=== PATIENT | female | born 1935 | race Caucasian/White ===

== ENCOUNTER 2017-09-17 08:40 | Inpatient (IN) ==
--- NOTE | 2017-09-17 09:04 | Emergency Department Note ---
General Adult HPI - General Chief complaint: Weakness Stated complaint: Weakness Time Seen by Provider: 09/17/17 08:58 Source: patient Mode of arrival: wheelchair Limitations: no limitations - History of Present Illness HPI Narrative: This patient was seen here on Friday and diagnosed with a right upper lobe pneumonia and started on Zithromax. She seems to be worsening at home over the last few days with increasing shortness of breath and weakness. No nausea vomiting no fever chills. - Related Data Previous Rx's Medication Instructions Recorded Centrum Silver Women 8 mg iron-400 1 tab PO QDAY 30 Days #30 tab NS 06/01/15 mcg-300 mcg tablet cholecalciferol (vitamin D3) 1,000 1,000 unit PO QDAY 30 Days #30 cap 06/01/15 unit capsule calcium carbonate 500 mg calcium 500 mg PO BID 30 Days #60 tab 12/03/16 (1,250 mg) tablet benazepril 20 mg tablet 20 mg PO QDAY 90 Days #90 tab 12/04/16 denosumab 60 mg/mL subcutaneous 60 mg SUB-Q [id number] #1 ml 12/20/16 syringe celecoxib 200 mg capsule 200 mg PO QDAY PRN #90 cap 04/10/17 Azithromycin [Zithromax] 250 mg PO DAILY #6 tab 09/14/17 Allergies Allergy/AdvReac Type Severity Reaction Status Date / Time Sulfa (Sulfonamide AdvReac Intermediate Itching Verified 09/17/17 08:43 Antibiotics) Review of Systems Constitutional: Denies: fever, chills Eyes: Denies: eye pain ENT ED: Denies: ear pain Cardiovascular: Denies: chest pain Respiratory: Reports: shortness of breath, cough Gastrointestinal: Denies: abdominal pain, nausea Genitourinary: Denies: dysuria Musculoskeletal: Denies: back pain Integumentary: Denies: rash Past Medical History - Past Medical History [facility] Narrative: Medical History Pneumonia (Acute) Breast cancer (Chronic) Colon cancer (Chronic) Hypertension, essential (Chronic) 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) Disorder of connective tissue (Suspected) Connective tissue disease overlap syndrome (Chronic) Leukopenia (Chronic) Stomach tumor (benign) (Chronic) Sicca syndrome, Sjogren's (Chronic) Schatzki's ring (Chronic) History of parotid cancer (Chronic) Pancytopenia (Chronic) Hypertonicity of bladder (Chronic) Osteoporosis (Chronic) Osteoarthritis (Chronic) Hyponatremia (Chronic) Anemia (Chronic) Arthritis (Inactive) Autoimmune disease (Inactive) Bleeding tendency (Inactive) Heart murmur (Inactive) History of modified radical mastectomy of left breast (Inactive) Rheumatic disease (Inactive) Screening for thyroid disorder (Inactive) Past Surgical History H/O mastectomy (Acute) H/O: hysterectomy (Acute) History of colon surgery (Acute) History of intestinal surgery (Inactive) Hx of biopsy (Inactive) Hx of colonoscopy (Inactive) Hx of hysterectomy (Inactive) Hx of right mastectomy (Inactive) Family History none listed Dementia mother Arthritis Essential hypertension - Social History smoking status: Never smoker Physical Exam Limitations: no limitations General appearance: alert, in no apparent distress Head: atraumatic Eye: Present: normal appearance ENT: normal exam Neck: Present: normal inspection Chest: Present: normal inspection Respiratory: Present: other (Scattered rhonchi). Absent: respiratory distress Cardiovascular: Present: regular rate, normal rhythm, normal heart sounds Abdominal: Present: soft. Absent: distention, tenderness Neurological: Present: alert Psychiatric: Present: normal affect, normal mood Skin: Present: warm, dry, intact Course Vital Signs Temperature 99.4 F H 09/17/17 08:41 Pulse Rate 80 09/17/17 08:41 Respiratory Rate 14 09/17/17 08:41 Blood Pressure 153/101 09/17/17 08:41 Pulse Oximetry (%) 97 09/17/17 08:41 Temperature 99.4 F H 09/17/17 08:41 Pulse Rate 73 09/17/17 10:01 Respiratory Rate 14 09/17/17 10:01 Blood Pressure 158/82 09/17/17 10:01 Pulse Oximetry (%) 98 09/17/17 10:01 Medical Decision Making - [facility] Narrative Medical decision making narrative: Patient's right upper lobe pneumonia is worsening and her sodium is 113. She will be admitted to the telemetry floor by the hospitalist. - Lab Data Lab results reviewed: Yes I reviewed the patient's lab results. Result diagrams: 09/17/17 09:12 09/17/17 09:11 Lab Results 09/17/17 09/17/17 09/17/17 Range/Units 09:11 09:11 09:12 WBC 13.3 H (4.5-11.0) K/mcL RBC 3.49 L (4.00-5.20) M/mcL Hgb 10.5 L (12.0-15.0) g/dL Hct 30.8 L (36.0-48.0) % MCV 88.3 (80.0-100.0) fL MCH 30.1 (26.0-34.0) pg MCHC 34.0 (31.0-36.0) g/dL RDW 13.9 (11.5-14.5) % Plt Count 235 (140-440) K/mcL MPV 8.9 (7.4-10.4) fL Gran % 91.9 H (38.0-78.0) % Lymph % (Auto) 2.8 L (15.5-49.0) % Deuel % (Auto) 5.2 (1.0-12.0) % Eos % (Auto) 0.1 (0.0-7.0) % Baso % (Auto) 0 (0.0-2.0) % Gran # 12.2 H (1.8-8.0) K/mcL Lymph # (Auto) 0.4 L (1.5-4.8) K/mcL Deuel # (Auto) 0.7 (0.1-0.9) K/mcL Eos # (Auto) 0 (0.0-0.7) K/mcL Baso # (Auto) 0 (0.0-0.3) K/mcL VBG Lactic Acid 1.0 (0.5-2.2) mmol/L Sodium 113 L* (133-145) mmol/L Potassium 4.0 (3.3-5.1) mmol/L Chloride 77 L (96-108) mmol/L Carbon Dioxide 21 L (22-30) mmol/L Anion Gap 15.0 (8-16) BUN 10 (8-23) mg/dl Creatinine 0.6 (0.6-1.1) mg/dl GFR Calculation 84 Glucose 103 (70-105) mg/dL Calcium 7.6 L (8.6-10.4) mg/dl Total Bilirubin 0.8 (0.0-1.0) mg/dL AST 27 (0-37) U/l ALT 14 (0-40) U/l Alkaline Phosphatase 49 (39-117) U/L Total Protein 7.0 (5.9-8.4) gm/dL Albumin 3.5 (3.2-5.2) gm/dL Globulin 3.5 (2.2-3.7) gm/dL Albumin/Globulin Ratio 1.0 (1.0-2.3) - Radiology Data Radiology results reviewed: Yes I reviewed the patient's radiology results. Disposition Pt seen by CABLE MECHANIC/PA only: No Clinical Impression: Pneumonia, Hyponatremia Disposition: Xfer As Inpt ([facility]) Condition: Fair Referrals: Emery Tai MD [Primary Care Provider] - Time of Disposition: 10:19
[2017-09-17] MEDS ORDERED: LACTATED RINGERS 1,000 ML IV SCH ×5 (09:15→20:10)
--- NOTE | 2017-09-17 09:31 | XRay Report ---
CLINICAL INFORMATION: Worsening pneumonia COMPARISON: 09/14/2017 FINDINGS: Cardiomediastinal silhouette is accentuated by right rotation and within normal limits. Pulmonary vessels are unremarkable. Moderate right upper lobe infiltrate has worsened from the x-ray three days ago. Small right pleural effusion noted. Mild old compression fractures throughout the upper mid thoracic spine are stable IMPRESSION: Moderate right upper lobe pneumonia worsening from exam three days ago small right pleural effusion Interpreted and Authenticated by: Kojo Paul 09/17/17
[2017-09-17 09:39] LABS: Basophils # (Auto) 0 K/mcL (0.0-0.3); Basophils % (Auto) 0 % (0.0-2.0); Eosinophils # (Auto) 0 K/mcL (0.0-0.7); Eosinophils % (Auto) 0.1 % (0.0-7.0); Granulocytes % (Auto) 91.9 % (38.0-78.0); Lymphocytes # (Auto) 0.4 K/mcL (1.5-4.8); Lymphocytes % (Auto) 2.8 % (15.5-49.0); Mean Cell Volume 88.3 fL (80.0-100.0); Mean Corpuscular Hemoglobin 30.1 pg (26.0-34.0); Monocytes # (Auto) 0.7 K/mcL (0.1-0.9); Monocytes % (Auto) 5.2 % (1.0-12.0); Platelet Count 235 K/mcL (140-440); RBC 3.49 M/mcL (4.00-5.20); Red Cell Distribution Width 13.9 % (11.5-14.5)
[2017-09-17 10:13] LABS: ALT/SGPT 14 U/l (0-40); Albumin 3.5 gm/dL (3.2-5.2); Alkaline Phosphatase 49 U/L (39-117); Blood Urea Nitrogen 10 mg/dl (8-23)
[2017-09-17] MEDS ORDERED: LEVOFLOXACIN 750 MG/150 ML BAG IV ONE (10:21)
[2017-09-17] MEDS ORDERED: HYDROcodone/APAP 5/325MG TABLET PO PRN (11:57)
[2017-09-17] MEDS ORDERED: ACETAMINOPHEN 325 MG TABLET PO PRN (11:57)
[2017-09-17] MEDS ORDERED: NALOXONE HCL 0.4 MG/ML VIAL IV PRN (11:57)
[2017-09-17] MEDS ORDERED: ONDANSETRON 4 MG/2 ML VIAL IV PRN (11:57)
[2017-09-17] MEDS ORDERED: IPRATROPIUM/ALBUTEROL 3 ML AMPUL.NEB NEB PRN (11:57)
[2017-09-17 13:19] LABS: Appearance,Urine CLEAR; Bilirubin,Urine NEG (NEG); Color,Urine YELLOW; Glucose,Urine (UA) NEGATIVE (NEG); Leukocyte Esterase,Urine NEG /uL (NEG); Protein,Urine NEG (NEG); Specific Gravity,Urine 1.011 (1.000-1.035); Urine Blood NEG mg/dL (<0.03)
[2017-09-17 13:20] LABS: Blood Urea Nitrogen 9 mg/dl (8-23); Uric Acid 2.2 mg/dL (2.5-8.0)
[2017-09-17 13:21] LABS: Osmolality,Urine 327 mOsm/kg (80-1000)
--- NOTE | 2017-09-17 13:24 | Internal Med History&Physical ---
Medical - H&P: HPI Patient information: Note initiated : 09/17/17 at 1:17 pm Service Date, if different from initiated Date: [] Patient: Janene Koroma 82 y/o F admitted on 09/17/17 for Weakness. Chief Complaint: [] History of present illness: Ms. Koroma is a 82 year old Female presents to the ER today with complaints of not feeling well since Friday, the patient woke up with symptoms of cough, not feeling well, shortness of breath on exertion. The cough was dry, non sputum production, the patient was weak therefore presented to the ER a few days ago, the patient was started on po azithromycin. The patient notes that she was taking her medication but still did not feel well and her weakness progressed. She denies any obvious fever or chills, but is bed bound is has lost her appetite, the patient despite taking medications x 3 days did not feel good therefore came back to the Er. In the ER she has leucocytosis,of 13K, low grade temp, Chest x ray showing right upper lobe pna, worsened from 3 days, and new hyponatremia of 113. The patient was therefore admitted to the hospital for further management. Patient is full code, at bedside. 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) Disorder of connective tissue (Suspected) Connective tissue disease overlap syndrome (Chronic) Leukopenia (Chronic) Stomach tumor (benign) (Chronic) Sicca syndrome, Sjogren's (Chronic) Schatzki's ring (Chronic) History of parotid cancer (Chronic) Pancytopenia (Chronic) Hypertonicity of bladder (Chronic) Osteoporosis (Chronic) Osteoarthritis (Chronic) Hyponatremia (Chronic) Anemia (Chronic) Arthritis (Inactive) Autoimmune disease (Inactive) Bleeding tendency (Inactive) Heart murmur (Inactive) History of modified radical mastectomy of left breast (Inactive) Rheumatic disease (Inactive) Screening for thyroid disorder (Inactive) Surgical history: Past Surgical History H/O mastectomy (Acute) H/O: hysterectomy (Acute) History of colon surgery (Acute) History of intestinal surgery (Inactive) Hx of biopsy (Inactive) Hx of colonoscopy (Inactive) Hx of hysterectomy (Inactive) Hx of right mastectomy (Inactive) Pertinent family history: Family History none listed Dementia mother Arthritis Essential hypertension Medical - H&P: Meds Home Medications Medication Instructions Recorded Confirmed Type Centrum Silver Women 8 mg iron-400 1 tab PO QDAY 30 Days #30 tab NS 06/01/15 Rx mcg-300 mcg tablet cholecalciferol (vitamin D3) 1,000 1,000 unit PO QDAY 30 Days #30 cap 06/01/15 09/17/17 Rx unit capsule calcium carbonate 500 mg calcium 500 mg PO BID 30 Days #60 tab 12/03/16 Rx (1,250 mg) tablet benazepril 20 mg tablet 20 mg PO QDAY 90 Days #90 tab 12/04/16 09/17/17 Rx denosumab 60 mg/mL subcutaneous 60 mg SUB-Q [id number] #1 ml 12/20/16 09/17/17 Rx syringe celecoxib 200 mg capsule 200 mg PO QDAY PRN #90 cap 04/10/17 09/17/17 Rx Azithromycin [Zithromax] 250 mg PO DAILY #6 tab 09/14/17 09/17/17 Rx Allergies Allergy/AdvReac Type Severity Reaction Status Date / Time Sulfa (Sulfonamide AdvReac Intermediate Itching Verified 09/17/17 08:43 Antibiotics) Medical - H&P: Exam - Constitutional Vitals: Temp Pulse Resp BP Pulse Ox 99.7 F H 83 16 163/109 98 09/17/17 12:01 09/17/17 12:09/17/17 12:01 09/17/17 12:09/17/17 12:01 Exam: GENERAL: The patient is a well-developed, well-nourished in no apparent distress. Is alert and oriented x3. VITAL SIGNS: Reviewed and as noted elsewhere. HEENT: Head is normocephalic and atraumatic. Extraocular muscles are intact. Pupils are equal, round, and reactive to light. Nares appeared normal. Mouth appears any without lesions. Mucous membranes are moist. NECK: Normal to inspection, Supple, No lymphadenopathy or thyromegaly. LUNGS: Air entry equal on both sides, no wheezing, right mid zone crackles noted , speaking full sentences, no use of accesory muscles. HEART: Regular rate and rhythm normal, S1 and S2 heard, no Gallop, S3 or Rub Noted, No Gross murmur heard. ABDOMEN: Soft, nontender, and nondistended. Positive bowel sounds. No hepatosplenomegaly was noted. EXTREMITIES: No cyanosis, clubbing, rash, lesions or edema. NEUROLOGIC: Cranial nerves II through XII are grossly intact. Motor and Sensory System Grossly Intact PSYCHIATRIC: Normal affect, Normal Mood. Appropriate Behavior. SKIN: No ulceration or wounds noted, No jaundice, No rash noted. Medical - H&P: Reslt - Labs CBC & Chem 7: 09/17/17 09:12 09/17/17 12:12 Labs: Short CBC 09/17/17 Range/Units 09:12 WBC 13.3 H (4.5-11.0) K/mcL Hgb 10.5 L (12.0-15.0) g/dL Hct 30.8 L (36.0-48.0) % Plt Count 235 (140-440) K/mcL BMP 09/17/17 09:11 Sodium 113 L* Potassium 4.0 Chloride 77 L Carbon Dioxide 21 L BUN 10 Creatinine 0.6 Glucose 103 Calcium 7.6 L Liver Function 09/17/17 Range/Units 09:11 Total Bilirubin 0.8 (0.0-1.0) mg/dL AST 27 (0-37) U/l ALT 14 (0-40) U/l Alkaline Phosphatase 49 (39-117) U/L Albumin 3.5 (3.2-5.2) gm/dL Medical - H&P: A/P - Narrative A/P Narrative: A/P community Acquired pneumonia: Treat with IV levoflxacin for now. blood sputum cx ordered, monitor, send urine legionella, and mycoplasma antibodies. Acute hyponatremia: likely due to infection and poor oral intake, start on LR for now (134meq) at 50cc/hr and try for gradual correction over 48 hrs. The patient would likely correct faster given dehydration is playing a role. Will switch fluids to d5W if needed. Basic q3 hrs, check tsh, urine osm, serum osm, urine sodium, cortisol levels. sepsis: WBC improving over 3 days, pt bp is stable, normal lactic acid, monitor HTN: Hold home bp medication today, monitor bp resume once stable DVT hep sq Diet regular full code. Social History - Tobacco smoking status: Never smoker - Alcohol alcohol intake frequency: holiday/special occasion only - Substance use substance use type: does not use
[2017-09-17] MEDS ORDERED: cloNIDine HCL 0.1 MG TABLET PO PRN (13:43)
[2017-09-17 16:25] LABS: Blood Urea Nitrogen 9 mg/dl (8-23)
[2017-09-17 20:02] LABS: Blood Urea Nitrogen 9 mg/dl (8-23)
[2017-09-17] MEDS: CALCIUM (OYSTER SHELL) 500 MG TABLET PO SCH (21:20)
[2017-09-17] MEDS: HEPARIN 5,000 UNIT/ML VIAL SQ SCH (21:20)
[2017-09-17 22:03] LABS: Blood Urea Nitrogen 8 mg/dl (8-23)
[2017-09-18 00:37] LABS: Blood Urea Nitrogen 7 mg/dl (8-23)
[2017-09-18] MEDS ORDERED: FUROSEMIDE 20 MG/2 ML VIAL IV ONE ×2 (00:40→00:53)
[2017-09-18] MEDS ORDERED: 0.9 % SODIUM CHLORIDE 1,000 ML IV SCH (00:45)
[2017-09-18 03:55] LABS: Blood Urea Nitrogen 7 mg/dl (8-23)
[2017-09-18] MEDS ORDERED: POTASSIUM CHLORIDE 40 MEQ in DEXTROSE 5% IN WATER 500 ML IV ONE (04:13)
[2017-09-18] MEDS ORDERED: POTASSIUM CHLORIDE 20 MEQ PACKET PO ONE (04:26)
[2017-09-18] MEDS ORDERED: SODIUM CHLORIDE 1 GM TABLET PO ONE (04:27)
[2017-09-18] MEDS ORDERED: POTASSIUM CHLORIDE 20 MEQ/10 ML VIAL IV ONE (04:41)
[2017-09-18 05:57] LABS: Basophils # (Auto) 0 K/mcL (0.0-0.3); Basophils % (Auto) 0.1 % (0.0-2.0); Eosinophils # (Auto) 0 K/mcL (0.0-0.7); Eosinophils % (Auto) 0.4 % (0.0-7.0); Granulocytes % (Auto) 88.2 % (38.0-78.0); Lymphocytes # (Auto) 0.4 K/mcL (1.5-4.8); Lymphocytes % (Auto) 4.2 % (15.5-49.0); Mean Cell Volume 89.2 fL (80.0-100.0); Mean Corpuscular HGB Conc 33.9 g/dL (31.0-36.0); Mean Corpuscular Hemoglobin 30.3 pg (26.0-34.0); Monocytes # (Auto) 0.7 K/mcL (0.1-0.9); Monocytes % (Auto) 7.1 % (1.0-12.0); Platelet Count 219 K/mcL (140-440); RBC 3.36 M/mcL (4.00-5.20); Red Cell Distribution Width 13.5 % (11.5-14.5)
[2017-09-18 08:36] LABS: Blood Urea Nitrogen 7 mg/dl (8-23)
[2017-09-18] MEDS: CALCIUM (OYSTER SHELL) 500 MG TABLET PO SCH ×2 (09:51→20:30)
[2017-09-18] MEDS: HEPARIN 5,000 UNIT/ML VIAL SQ SCH ×2 (09:51→20:30)
[2017-09-18] MEDS ORDERED: NEUTRA PHOS 1 PACKET PO ONE (11:00)
[2017-09-18] MEDS: NEUTRA PHOS 1 PACKET PO SCH ×2 (11:15→20:32)
--- NOTE | 2017-09-18 11:54 | Internal Med Progress Note ---
Medical - PN: Subj Patient information: Note initiated : 09/18/17 at 11:46 am Service Date, if different from initiated Date: [] Patient: Janene Koroma 82 y/o F admitted on 09/17/17 for Weakness/ Pneumonia. Chief Complaint: [] Interval history: Ms. Koroma is a 82 year old Female presents to the ER today with complaints of not feeling well since Friday, the patient woke up with symptoms of cough, not feeling well, shortness of breath on exertion. The cough was dry, non sputum production, the patient was weak therefore presented to the ER a few days ago, the patient was started on po azithromycin. The patient notes that she was taking her medication but still did not feel well and her weakness progressed. She denies any obvious fever or chills, but is bed bound is has lost her appetite, the patient despite taking medications x 3 days did not feel good therefore came back to the Er. In the ER she has leucocytosis,of 13K, low grade temp, Chest x ray showing right upper lobe pna, worsened from 3 days, and new hyponatremia of 113. The patient was therefore admitted to the hospital for further management. 09/18-patient clinically improving. Improved shortness of breath and fatigue. Sodium up from 113-119. Urine osmolarity consistent with SIADH. White count downtrending from 13,000-10. on phosphorus replacement. labile blood pressures between 120s and 150s. Paroxysms of Afib during PT and ambulation and now back in sinus. No CP,SOB , improved fatigue and exercise tolerance. - Constitutional Vitals: Vital Signs Temp Pulse Resp BP Pulse Ox 99.8 F H 79 16 158/83 99 09/18/17 07:30 09/18/17 03:23 09/18/17 07:30 09/18/17 07:30 09/18/17 07:30 Period Temp Pulse Resp BP Sys/Donato Pulse Ox Last 24 Hr 98.6 F-99.8 F 71-126 16-18 126-166/68-109 94-99 Intake and Output 09/17/17 09/18/17 09/18/17 21:59 05:59 13:59 Intake Total 300 / 300 1000 / 1000 Output Total 747 / 747 1800 / 1800 Balance -447 / -447 -1800 / -1800 1000 / 1000 Weight 119 lb 8 oz Intake & Output: Intake & Output 09/17/17 09/18/17 09/18/17 21:59 05:59 13:59 Intake Total 300 / 300 1000 / 1000 Output Total 747 / 747 1800 / 1800 Balance -447 / -447 -1800 / -1800 1000 / 1000 Weight 119 lb 8 oz Intake: IV 1000 / 1000 Oral 300 / 300 Output: Urine Catheter Amount 425 / 425 1800 / 1800 Void Amount 320 / 320 # of times incontinent of urine 2 / 2 Other: Meal Dinner Percent of Meal Consumed 100% Feeding Ability Independent General appearance: no acute distress Exam: no lymphedema o pallor alert and oriented Ambulating No anxiety nonlabored breathing Medical - PN: Obj Da - Labs CBC & Chem 7: 09/18/17 03:00 09/18/17 07:33 Labs: Abnormal Lab Results 09/18/17 09/18/17 09/18/17 07:33 03:00 03:00 WBC RBC 3.36 L Hgb 10.2 L Hct 30.0 L Gran % 88.2 H Lymph % (Auto) 4.2 L Gran # 9.0 H Lymph # (Auto) 0.4 L Sodium 119 L* Potassium Chloride 84 L Carbon Dioxide 20 L Anion Gap BUN 7 L Creatinine 0.5 L Glucose Osmolality Uric Acid Calcium 7.5 L Phosphorus 1.7 L Urine Ketones Urine Urobilinogen 09/18/17 09/18/17 09/17/17 03:00 00:00 21:00 WBC RBC Hgb Hct Gran % Lymph % (Auto) Gran # Lymph # (Auto) Sodium 117 L* 114 L* 117 L* Potassium 3.2 L Chloride 82 L 80 L 79 L Carbon Dioxide 21 L 20 L 20 L Anion Gap 18.0 H BUN 7 L 7 L Creatinine 0.5 L 0.4 L 0.5 L Glucose 107 H Osmolality Uric Acid Calcium 7.5 L 7.5 L 7.8 L Phosphorus Urine Ketones Urine Urobilinogen 09/17/17 09/17/17 09/17/17 18:10 15:20 12:23 WBC RBC Hgb Hct Gran % Lymph % (Auto) Gran # Lymph # (Auto) Sodium 112 L* 116 L* Potassium Chloride 77 L 78 L Carbon Dioxide 17 L 19 L Anion Gap 18.0 H 19.0 H BUN Creatinine 0.5 L 0.5 L Glucose 113 H Osmolality Uric Acid Calcium 7.7 L 7.5 L Phosphorus Urine Ketones 20 A Urine Urobilinogen 2.0 A 09/17/17 09/17/17 09/17/17 12:12 09:12 09:11 WBC 13.3 H RBC 3.49 L Hgb 10.5 L Hct 30.8 L Gran % 91.9 H Lymph % (Auto) 2.8 L Gran # 12.2 H Lymph # (Auto) 0.4 L Sodium 117 L* 113 L* Potassium Chloride 81 L 77 L Carbon Dioxide 19 L 21 L Anion Gap 17.0 H BUN Creatinine 0.5 L Glucose Osmolality 242 L Uric Acid 2.2 L Calcium 7.7 L 7.6 L Phosphorus Urine Ketones Urine Urobilinogen Meds: Medications Acetaminophen (Tylenol) 650 mg PO Q6HP PRN PRN Reason: PAIN/FEVER > 101 Hydrocodone Bitart/Acetaminophen (Whitney 5/325mg) 1 tab PO Q4HP PRN PRN Reason: PAIN LEVEL 3-6 Albuterol/Ipratropium (Duoneb) 3 ml NEB Q4HRT PRN PRN Reason: Shortness Of Breath Or Wheezing Calcium Carbonate/Glycine (Oscal) 500 mg PO BID [facility] Last Admin: 09/18/17 09:51 Dose: 500 mg Clonidine HCl (Catapres) 0.1 mg PO Q4HP PRN PRN Reason: Hypertension Last Admin: 09/17/17 21:25 Dose: 0.1 mg Heparin Sodium (Porcine) (Heparin) 5,000 unit SQ Q12 [facility] Last Admin: 09/18/17 09:51 Dose: 5,000 unit Levofloxacin (Levaquin) 750 mg in 150 mls @ 150 mls/hr IV Q48H [facility] Sodium Chloride (Sodium Chloride 0.9%) 1,000 mls @ 25 mls/hr IV .Q24H [facility] Naloxone HCl (Narcan) 0.1 mg IV Q2MIN PRN PRN Reason: Opiate Reversal Ondansetron HCl (Zofran) 4 mg IV Q4HP PRN PRN Reason: Nausea And Vomiting Potassium/Phosphorus/Sodium (Neutra Phos) 2 packet PO BID [facility] Medical - PN: A/P - Time Spent With Patient Total time spent is greater than 50% in coordination of care (as documented) at patient's floor/unit and/or counseling patient: 25 - 35 minutes (1) SIADH (syndrome of inappropriate ADH production) Status: Acute Assessment and plan: * symptomatic hypernatremia at 113- clinically improving with free water restriction and salt tabs 1 g 3 times a day. * 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 urine osmole 327 * community acquired pneumonia-continue levofloxacin. Negative serologies including mycoplasma. Urine Legionella pending.cultures pending * sepsis clinically improved * low phosphorus on replacement * Hypertension restart home dose CHARIS inhibitor * DVT prophylaxis on heparin * Full code Plan * continue antibiotic coverage * every 4 BMP * Freewater restriction/Salt tabs * pre-existing medical condition management as above * Possible discharge in 48 hours once sodium level around 130 Current Visit: Yes Medical - PN: Qual - VTE Deep Vein Thrombosis/Pulmonary Embolism Present on Admission: No
[2017-09-18 12:01] LABS: Blood Urea Nitrogen 7 mg/dl (8-23)
[2017-09-18 13:28] LABS: Blood Urea Nitrogen 9 mg/dl (8-23)
[2017-09-18] MEDS ORDERED: DILTIAZEM 25 MG/5 ML VIAL IV ONE (13:37)
[2017-09-18] MEDS: SODIUM CHLORIDE 1 GM TABLET PO SCH ×2 (14:40→20:30)
[2017-09-18] MEDS ORDERED: DILTIAZEM 30 MG TABLET PO ONE (15:32)
[2017-09-18] MEDS: 0.9 % SODIUM CHLORIDE 1,000 ML IV SCH (16:00)
[2017-09-18] MEDS: DILTIAZEM 30 MG TABLET PO SCH ×2 (17:33→20:30)
[2017-09-19 05:59] LABS: Basophils # (Auto) 0 K/mcL (0.0-0.3); Basophils % (Auto) 0.4 % (0.0-2.0); Eosinophils # (Auto) 0 K/mcL (0.0-0.7); Eosinophils % (Auto) 0.5 % (0.0-7.0); Granulocytes % (Auto) 79.3 % (38.0-78.0); Lymphocytes # (Auto) 0.6 K/mcL (1.5-4.8); Lymphocytes % (Auto) 7.5 % (15.5-49.0); Mean Cell Volume 89.2 fL (80.0-100.0); Mean Corpuscular HGB Conc 33.3 g/dL (31.0-36.0); Mean Corpuscular Hemoglobin 29.7 pg (26.0-34.0); Monocytes % (Auto) 12.3 % (1.0-12.0); Platelet Count 236 K/mcL (140-440); RBC 3.49 M/mcL (4.00-5.20); Red Cell Distribution Width 13.9 % (11.5-14.5)
[2017-09-19 06:07] LABS: ALT/SGPT 89 U/l (0-40); Albumin 2.8 gm/dL (3.2-5.2); Albumin/Globulin Ratio 0.8 (1.0-2.3); Alkaline Phosphatase 77 U/L (39-117); Bilirubin,Direct < 0.2 mg/dL (0.0-0.3); Blood Urea Nitrogen 12 mg/dl (8-23); Gamma Glutamyl Transpeptidase 55 U/L (5-36); Uric Acid 2.1 mg/dL (2.5-8.0)
[2017-09-19] MEDS: DILTIAZEM 30 MG TABLET PO SCH (07:42)
--- NOTE | 2017-09-19 08:08 | Internal Med Progress Note ---
Medical - PN: Subj Patient information: Note initiated : 09/19/17 at 8:04 am Service Date, if different from initiated Date: [] Patient: Janene Koroma 82 y/o F admitted on 09/17/17 for Weakness/ Pneumonia. Chief Complaint: [] Interval history: Ms. Koroma is a 82 year old Female presents to the ER today with complaints of not feeling well since Friday, the patient woke up with symptoms of cough, not feeling well, shortness of breath on exertion. The cough was dry, non sputum production, the patient was weak therefore presented to the ER a few days ago, the patient was started on po azithromycin. The patient notes that she was taking her medication but still did not feel well and her weakness progressed. She denies any obvious fever or chills, but is bed bound is has lost her appetite, the patient despite taking medications x 3 days did not feel good therefore came back to the Er. In the ER she has leucocytosis,of 13K, low grade temp, Chest x ray showing right upper lobe pna, worsened from 3 days, and new hyponatremia of 113. The patient was therefore admitted to the hospital for further management. 09/18-patient clinically improving. Improved shortness of breath and fatigue. Sodium up from 113-119. Urine osmolarity consistent with SIADH. White count downtrending from 13,000-10. on phosphorus replacement. labile blood pressures between 120s and 150s. Paroxysms of Afib during PT and ambulation and now back in sinus. No CP,SOB , improved fatigue and exercise tolerance. 09/19- improving leukocytosis to 8.1 from 30.3. Sodium at 128- rising at goal with free water restriction and salt tabs . No overnight fever chills. Improved fatigue and lethargic and patient able to ambulate and participate in physical therapy. Motivated. No active concerns for medical staff for patient. intermittent A. fib currently controlled on diltiazem. transition to long-acting diltiazem today.continue antibiotic coverage. blood pressures at goal. ontinue phosphorus replacement. elevated LFTs noted. Right upper quadrant ultrasound - Constitutional Vitals: Vital Signs Temp Pulse Resp BP Pulse Ox 98.8 F 79 20 133/67 96 09/19/17 07:20 09/19/17 04:00 09/19/17 07:20 09/19/17 07:20 09/19/17 07:20 Period Temp Pulse Resp BP Sys/Donato Pulse Ox Last 24 Hr 98.0 F-99.9 F 79-119 16-20 98-141/57-83 95-98 Intake and Output 09/18/17 09/19/17 09/19/17 21:59 05:59 13:59 Intake Total 240 / 240 300 / 300 Output Total 150 / 150 575 / 575 Balance 90 / 90 -275 / -275 Weight 123 lb 8 oz Intake & Output: Intake & Output 09/18/17 09/19/17 09/19/17 21:59 05:59 13:59 Intake Total 240 / 240 300 / 300 Output Total 150 / 150 575 / 575 Balance 90 / 90 -275 / -275 Weight 123 lb 8 oz Intake: Oral 240 / 240 300 / 300 Output: Urine Catheter Amount 150 / 150 575 / 575 Other: Meal Dinner Percent of Meal Consumed 100% Feeding Ability Assist with Tray Set Up Medical - PN: Obj Da - Labs CBC & Chem 7: 09/19/17 03:40 09/19/17 06:30 Labs: Abnormal Lab Results 09/19/17 09/19/17 09/19/17 06:30 03:40 03:40 WBC RBC 3.49 L Hgb 10.4 L Hct 31.2 L Gran % 79.3 H Lymph % (Auto) 7.5 L Randall % (Auto) 12.3 H Gran # Lymph # (Auto) 0.6 L Randall # (Auto) 1.0 H Sodium 128 L 127 L Potassium Chloride 92 L Carbon Dioxide 20 L Anion Gap BUN Creatinine Glucose Osmolality Uric Acid 2.1 L Calcium 8.1 L Phosphorus 1.7 L GGT 55 H AST 126 H ALT 89 H Albumin 2.8 L Albumin/Globulin Ratio 0.8 L Urine Ketones Urine Urobilinogen 09/19/17 09/18/17 09/18/17 00:00 18:19 12:31 WBC RBC Hgb Hct Gran % Lymph % (Auto) Randall % (Auto) Gran # Lymph # (Auto) Randall # (Auto) Sodium 124 L 123 L 119 L* Potassium Chloride 85 L Carbon Dioxide 20 L Anion Gap BUN Creatinine 0.5 L Glucose 113 H Osmolality Uric Acid Calcium 7.9 L Phosphorus 1.5 L GGT AST ALT Albumin Albumin/Globulin Ratio Urine Ketones Urine Urobilinogen 09/18/17 09/18/17 09/18/17 09:50 07:33 03:00 WBC RBC Hgb Hct Gran % Lymph % (Auto) Randall % (Auto) Gran # Lymph # (Auto) Randall # (Auto) Sodium 120 L 119 L* Potassium Chloride 85 L 84 L Carbon Dioxide 19 L 20 L Anion Gap BUN 7 L 7 L Creatinine 0.5 L 0.5 L Glucose 108 H Osmolality Uric Acid Calcium 8.0 L 7.5 L Phosphorus 1.7 L GGT AST ALT Albumin Albumin/Globulin Ratio Urine Ketones Urine Urobilinogen 09/18/17 09/18/17 09/18/17 03:00 03:00 00:00 WBC RBC 3.36 L Hgb 10.2 L Hct 30.0 L Gran % 88.2 H Lymph % (Auto) 4.2 L Randall % (Auto) Gran # 9.0 H Lymph # (Auto) 0.4 L Randall # (Auto) Sodium 117 L* 114 L* Potassium 3.2 L Chloride 82 L 80 L Carbon Dioxide 21 L 20 L Anion Gap BUN 7 L 7 L Creatinine 0.5 L 0.4 L Glucose 107 H Osmolality Uric Acid Calcium 7.5 L 7.5 L Phosphorus GGT AST ALT Albumin Albumin/Globulin Ratio Urine Ketones Urine Urobilinogen 09/17/17 09/17/17 09/17/17 21:00 18:10 15:20 WBC RBC Hgb Hct Gran % Lymph % (Auto) Randall % (Auto) Gran # Lymph # (Auto) Randall # (Auto) Sodium 117 L* 112 L* 116 L* Potassium Chloride 79 L 77 L 78 L Carbon Dioxide 20 L 17 L 19 L Anion Gap 18.0 H 18.0 H 19.0 H BUN Creatinine 0.5 L 0.5 L 0.5 L Glucose 113 H Osmolality Uric Acid Calcium 7.8 L 7.7 L 7.5 L Phosphorus GGT AST ALT Albumin Albumin/Globulin Ratio Urine Ketones Urine Urobilinogen 09/17/17 09/17/17 09/17/17 12:23 12:12 09:12 WBC 13.3 H RBC 3.49 L Hgb 10.5 L Hct 30.8 L Gran % 91.9 H Lymph % (Auto) 2.8 L Randall % (Auto) Gran # 12.2 H Lymph # (Auto) 0.4 L Randall # (Auto) Sodium 117 L* Potassium Chloride 81 L Carbon Dioxide 19 L Anion Gap 17.0 H BUN Creatinine 0.5 L Glucose Osmolality 242 L Uric Acid 2.2 L Calcium 7.7 L Phosphorus GGT AST ALT Albumin Albumin/Globulin Ratio Urine Ketones 20 A Urine Urobilinogen 2.0 A 09/17/17 09:11 WBC RBC Hgb Hct Gran % Lymph % (Auto) Randall % (Auto) Gran # Lymph # (Auto) Randall # (Auto) Sodium 113 L* Potassium Chloride 77 L Carbon Dioxide 21 L Anion Gap BUN Creatinine Glucose Osmolality Uric Acid Calcium 7.6 L Phosphorus GGT AST ALT Albumin Albumin/Globulin Ratio Urine Ketones Urine Urobilinogen Meds: Medications Acetaminophen (Tylenol) 650 mg PO Q6HP PRN PRN Reason: PAIN/FEVER > 101 Hydrocodone Bitart/Acetaminophen ([place] 5/325mg) 1 tab PO Q4HP PRN PRN Reason: PAIN LEVEL 3-6 Albuterol/Ipratropium (Duoneb) 3 ml NEB Q4HRT PRN PRN Reason: Shortness Of Breath Or Wheezing Calcium Carbonate/Glycine (Oscal) 500 mg PO BID [facility] Last Admin: 09/18/17 20:30 Dose: 500 mg Clonidine HCl (Catapres) 0.1 mg PO Q4HP PRN PRN Reason: Hypertension Last Admin: 09/17/17 21:25 Dose: 0.1 mg Diltiazem HCl (Cardizem) 30 mg PO ACHS [facility] Last Admin: 09/19/17 07:42 Dose: 30 mg Heparin Sodium (Porcine) (Heparin) 5,000 unit SQ Q12 [facility] Last Admin: 09/18/17 20:30 Dose: 5,000 unit Levofloxacin (Levaquin) 750 mg in 150 mls @ 150 mls/hr IV Q48H [facility] Sodium Chloride (Sodium Chloride 0.9%) 1,000 mls @ 25 mls/hr IV .Q24H [facility] Last Admin: 09/18/17 16:00 Dose: 25 mls/hr Lisinopril (Zestril) 20 mg PO DAILY [facility] Naloxone HCl (Narcan) 0.1 mg IV Q2MIN PRN PRN Reason: Opiate Reversal Ondansetron HCl (Zofran) 4 mg IV Q4HP PRN PRN Reason: Nausea And Vomiting Potassium/Phosphorus/Sodium (Neutra Phos) 2 packet PO BID [facility] Last Admin: 09/18/17 20:32 Dose: 2 packet Sodium Chloride (Sodium Chloride) 1 gm PO TID [facility] Last Admin: 09/18/17 20:30 Dose: 1 gm Medical - PN: A/P - Time Spent With Patient Total time spent is greater than 50% in coordination of care (as documented) at patient's floor/unit and/or counseling patient: 25 - 35 minutes (1) SIADH (syndrome of inappropriate ADH production) Status: Acute Assessment and plan: * Symptomatic hypernatremia at 113 clinical improvement in sodium at 128 with rise at goal- continue free water restriction and salt tabs * 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 urine osmolarity 327.management as above * Paroxysmal A. fib with RVR- rate and managed on IV diltiazem. Transition to oral long-acting diltiazem. Patient would be a candidate for anticoagulation for CVA prophylaxis based on chads score over 2. Will defer to primary care physician for discussions and initiation of anticoagulation * Community acquired pneumonia-continue levofloxacin. linically improving. Negative serologies including mycoplasma. Urine Legionella awaited * Sepsis clinically resolved. * Low phosphorus on replacement. 1.7 today * Hypertension ontinue home dose CHARIS inhibitor, added diltiazem 120 CD * DVT prophylaxis on heparin * Full code Plan * continue antibiotic coverage * diltiazem 120 extended release for A. fib * continue Freewater restriction/Salt tabs * pre-existing medical condition management as above * PCP to consider anti-coagulation CVA prophylaxis in light of chads score over 2 * possible discharge in 24 hours Current Visit: Yes Medical - PN: Qual - VTE Deep Vein Thrombosis/Pulmonary Embolism Present on Admission: No
[2017-09-19] MEDS ORDERED: LEVOFLOXACIN 750 MG/150 ML BAG IV SCH (09:00)
[2017-09-19] MEDS: HEPARIN 5,000 UNIT/ML VIAL SQ SCH ×2 (09:22→21:55)
[2017-09-19] MEDS: SODIUM CHLORIDE 1 GM TABLET PO SCH ×3 (09:22→21:54)
[2017-09-19] MEDS: NEUTRA PHOS 1 PACKET PO SCH ×2 (09:22→21:54)
[2017-09-19] MEDS: LISINOPRIL 20 MG TABLET PO SCH (09:22)
[2017-09-19] MEDS: CALCIUM (OYSTER SHELL) 500 MG TABLET PO SCH ×2 (09:22→21:55)
[2017-09-19] MEDS: 0.9 % SODIUM CHLORIDE 1,000 ML IV SCH (09:23)
[2017-09-19] MEDS: DILTIAZEM 120 MG CAP.XL.24H PO SCH (11:06)
--- NOTE | 2017-09-19 16:24 | Ultrasound Report ---
CLINICAL INFORMATION: Elevated LFTs COMPARISON: None. FINDINGS: Liver is mildly enlarged and diffusely hyperechoic compatible with fatty change or other diffuse hepatocellular process. No focal hepatic lesions. Gallbladder and bile ducts are normal - CBD is 6 mm. The pancreas is normal IMPRESSION: Mildly enlarged, hyperechoic liver compatible fatty change or other global hepatocellular process. Interpreted and Authenticated by: Kojo Paul 09/19/17
[2017-09-20 05:16] LABS: Basophils # (Auto) 0 K/mcL (0.0-0.3); Basophils % (Auto) 0.3 % (0.0-2.0); Eosinophils # (Auto) 0.1 K/mcL (0.0-0.7); Eosinophils % (Auto) 1.3 % (0.0-7.0); Lymphocytes # (Auto) 0.6 K/mcL (1.5-4.8); Lymphocytes % (Auto) 8.8 % (15.5-49.0); Mean Cell Volume 89.1 fL (80.0-100.0); Mean Corpuscular HGB Conc 33.7 g/dL (31.0-36.0); Mean Corpuscular Hemoglobin 30.1 pg (26.0-34.0); Monocytes # (Auto) 0.9 K/mcL (0.1-0.9); Monocytes % (Auto) 12.6 % (1.0-12.0); Platelet Count 258 K/mcL (140-440); RBC 3.28 M/mcL (4.00-5.20); Red Cell Distribution Width 14.1 % (11.5-14.5)
[2017-09-20 05:47] LABS: ALT/SGPT 97 U/l (0-40); Albumin 2.7 gm/dL (3.2-5.2); Albumin/Globulin Ratio 0.8 (1.0-2.3); Alkaline Phosphatase 84 U/L (39-117); Bilirubin,Direct < 0.2 mg/dL (0.0-0.3); Blood Urea Nitrogen 11 mg/dl (8-23); Gamma Glutamyl Transpeptidase 67 U/L (5-36); Uric Acid 1.9 mg/dL (2.5-8.0)
[2017-09-20] MEDS: HEPARIN 5,000 UNIT/ML VIAL SQ SCH (10:40)
[2017-09-20] MEDS: SODIUM CHLORIDE 1 GM TABLET PO SCH ×2 (10:41→15:15)
[2017-09-20] MEDS: LISINOPRIL 20 MG TABLET PO SCH (10:41)
[2017-09-20] MEDS: NEUTRA PHOS 1 PACKET PO SCH (10:41)
[2017-09-20] MEDS: CALCIUM (OYSTER SHELL) 500 MG TABLET PO SCH (10:42)
[2017-09-20] MEDS: DILTIAZEM 120 MG CAP.XL.24H PO SCH (10:42)
--- NOTE | 2017-09-20 11:51 | XRay Report ---
CLINICAL INFORMATION: Follow pneumonia COMPARISON: 09/14/2017 09/17/2017 FINDINGS: Moderate size right upper lobe infiltrate has slightly more air worsened slightly from the exam three days prior with slightly more airspace disease peripherally. There may be a new small vague developing in the left apex. Underlying COPD noted. Cardiomediastinal silhouette and pulmonary vessels remain normal. Mild old compression fractures in the upper thoracic spine stable IMPRESSION: Moderate sized right upper lobe lobe infiltrate - worsening slightly. Suspect developing left apical infiltrate Underlying COPD Interpreted and Authenticated by: Kojo Paul 09/20/17
--- NOTE | 2017-09-20 12:18 | Discharge Summary ---
Medical - DS: Prov Patient information: Note initiated : 09/20/17 at 12:17 pm Service Date, if different from initiated Date: [] Patient: Janene Koroma 82 y/o F admitted on 09/17/17 for Weakness/ Pneumonia. Chief Complaint: [] Date of admission: 09/17/17 11:45 Discharge date: 09/20/17 Primary care physician: Júnior Tai Admitting clinician: Jose Segovia Consults: 09/17/17 10:16 Consult to Physician [CONS] Stat Comment: Consulting Provider: Jose Segovia Reason For Exam: Physician to Consult Discharging clinician: Jose Segovia Medical - DS: Meds - Discharge Medications Prescriptions: Levofloxacin 750 mg PO DAILY #4 tab Sodium Chloride 1 gm PO TID #90 tab Active and Home Medications: Home Medications Centrum Silver Women 8 mg iron-400 mcg-300 mcg tablet 1 tab PO QDAY 30 Days #30 tab NS 06/01/15 [Rx Confirmed 09/17/17 Last Taken 09/16/17 08:00] cholecalciferol (vitamin D3) 1,000 unit capsule 1,000 unit PO QDAY 30 Days #30 cap 06/01/15 [Rx Confirmed 09/17/17 Last Taken 09/16/17 08:00] calcium carbonate 500 mg calcium (1,250 mg) tablet 500 mg PO BID 30 Days #60 tab 12/03/16 [Rx Confirmed 09/17/17 Last Taken 09/16/17 08:00] benazepril 20 mg tablet 20 mg PO QDAY 90 Days #90 tab 12/04/16 [Rx Confirmed Last Taken 09/16/17 08:00] denosumab 60 mg/mL subcutaneous syringe 60 mg SUB-Q [id number] #1 ml 12/20/16 [Rx Confirmed 09/17/17 Last Taken 09/16/17 08:00] celecoxib 200 mg capsule 200 mg PO QDAY PRN #90 cap 04/10/17 [Rx Confirmed 09/17 Last Taken 09/16/17 08:00] Azithromycin [Zithromax] 250 mg PO DAILY #6 tab 09/14/17 [Rx Confirmed 09/17/17 Last Taken 09/16/17 08:00] Medical - DS: Hosp Hospital course: Ms. Koroma is a 82 year old Female presented to the ER with complaints of not feeling well since Friday , the patient woke up with symptoms of cough, not feeling well, shortness of breath on exertion. The cough was dry, non sputum production, the patient was weak therefore presented to the ER a few days ago, the patient was started on po azithromycin. The patient notes that she was taking her medication but still did not feel well and her weakness progressed. She denies any obvious fever or chills, but is bed bound is has lost her appetite, the patient despite taking medications x 3 days did not feel good therefore came back to the Er. In the ER she has leucocytosis,of 13K, low grade temp, Chest x ray showing right upper lobe pna, worsened from 3 days, and new hyponatremia of 113. The patient was therefore admitted to the hospital for further management. Pneumonia: Treated with IV levofloxacin, responded well to treatment, patient leucocytosis resolved, patient strenght improved and she as able to ambulate well. Her X ray chest however was reported as slight worsening. Clinically she has improved significantly from admission. Plan to just continue antibiotics for now and advised to repeat Chest X ray in 2 weeks. Severe Hyponatremia: SIADH likely secondary to infection. TSH, Cortisol neg, patient responded well to sodium chloride tab and fluid restriction, she was slowly corected from 113 (at admission) to 130 at the time of discharge. patient is able to keep her sodium well controlled with this regime. 1gm tid NaCl and 1200cc fluid restriction. I expect her sodium to improve once the infection is improved. Should she continue to struggle with hyponatremia, it might be worth while to consider a Chest CT. The patient should have a BMP done in 1 week to ensure continued improvement in her sodium. The patient had abnl LFT, which remained stable, Liver USG was neg for acute process, fatty change or diffuse process, ? due to infection? The patient has Afib which is well controlled with caridzem. The rest of the stay in the hospital was uneventful. DUE TO A GLITCH IN THE Tyto SYSTEM, HOME MED RECONCILIATION AT DISCHARGE WAS NOT DONE, NO CHANGES IN HOME MEDS EXCEPT USE OF SHORT COURSE OF ANTIBIOTICS AND STARTING SODIUM CHLORIDE TABLETS. Discharge diagnosis: Pneumonia, Severe Hyponatremia. - Time Spent with Patient Total time spent providing and/or coordinating discharge services: Greater than 30 minutes Medical - DS: Exam - Constitutional Vitals: Vital Signs Temp Pulse Resp BP Pulse Ox 09/20/17 11:23 99 F 75 18 140/78 96 09/20/17 06:21 98.2 F 18 151/76 96 09/20/17 04:00 89 18 95 09/20/17 00:00 98.0 F 91 H 20 144/80 98 09/19/17 20:00 88 20 95 09/19/17 17:00 99.5 F H 86 18 118/68 98 Intake and Output 09/19/17 09/20/17 09/20/17 21:59 05:59 13:59 Intake Total 180 / 180 785 / 785 Output Total 600 / 600 450 / 450 950 / 950 Balance -420 / -420 -450 / -450 -165 / -165 Intake: IV 605 / 605 Sodium Chloride 0.9% 1,000 ml @ 605 / 605 25 mls/hr IV .Q24H [facility] Rx#: [id number] Oral 180 / 180 180 / 180 Output: Urine Catheter Amount 600 / 600 450 / 450 950 / 950 Other: Meal Dinner Breakfast Percent of Meal Consumed 100% 100% Feeding Ability Independent Independent Weight 122 lb 8 oz Additional comments: Constitutional; Afebrile, cooperative, alert, not in distress. Eyes- No icterus, , No periorbital swelling Ears- Ext ear normal, hearing normal to conversation. Neck- Midline trachea, supple Respiratory system: Air Entry equal on both sides, No crackles or wheezing, no rhonchi. CVS- Rate rhythm regular, S1,S2 heard, no gallop, no rub. Abdomen- Soft nontender abdomen, no organomegaly, no tenderness, no guarding or rigidity, [employer]- AOOx3, moving all extremities, no gross focal deficit noted. Medical - DS: Data Labs on day of discharge: Labs from last 24 hours 09/20/17 09/20/17 09/19/17 03:30 03:30 18:31 WBC 7.1 RBC 3.28 L Hgb 9.9 L Hct 29.2 L MCV 89.1 MCH 30.1 MCHC 33.7 RDW 14.1 Plt Count 258 MPV 8.8 Gran % 77.0 Lymph % (Auto) 8.8 L [place] % (Auto) 12.6 H Eos % (Auto) 1.3 Baso % (Auto) 0.3 Gran # 5.4 Lymph # (Auto) 0.6 L [place]ard # (Auto) 0.9 Eos # (Auto) 0.1 Baso # (Auto) 0 Sodium 130 L 127 L Potassium 4.1 Chloride 96 Carbon Dioxide 21 L Anion Gap 13.0 BUN 11 Creatinine 0.6 GFR Calculation 84 Glucose 96 Uric Acid 1.9 L Calcium 7.8 L Phosphorus 2.2 L Magnesium 2.0 Total Bilirubin 0.3 Direct Bilirubin < 0.2 GGT 67 H AST 88 H ALT 97 H Alkaline Phosphatase 84 Lactate Dehydrogenase 194 Total Protein 5.9 Albumin 2.7 L Globulin 3.2 Albumin/Globulin Ratio 0.8 L Triglycerides 55 09/19/17 12:00 WBC RBC Hgb Hct MCV MCH MCHC RDW Plt Count MPV Gran % Lymph % (Auto) Menard % (Auto) Eos % (Auto) Baso % (Auto) Gran # Lymph # (Auto) Menard # (Auto) Eos # (Auto) Baso # (Auto) Sodium 128 L Potassium Chloride Carbon Dioxide Anion Gap BUN Creatinine GFR Calculation Glucose Uric Acid Calcium Phosphorus Magnesium Total Bilirubin Direct Bilirubin GGT AST ALT Alkaline Phosphatase Lactate Dehydrogenase Total Protein Albumin Globulin Albumin/Globulin Ratio Triglycerides Medical - DS: A/P - Patient/Caregiver Discharge Instructions Activity: as per physical therapy, increase activity as tolerated Diet: Regular Diet (Fluid Restriction to 1200ml /24 hrs (41Fl oz) ) Additional Instructions: You presented to the hospital with very low sodium values and pneumonia. YOu have responded well to present treatment Please follow strict fluid restriction to 1200ml / 24 hrs (approx 41Fl oz) Follow up with PCP in 1 week I would advise that you have your BMP checked in 1 week and chest x ray in 1-2 weeks, Your primary care doctor can order these tests for you Please go back to the ER for worsening symptoms, confusion, weakness, fever or any other acute concern. Prescriptions: Levofloxacin 750 mg PO DAILY #4 tab Sodium Chloride 1 gm PO TID #90 tab - Follow up Plan Follow up with: Emery Tai MD [Primary Care Provider] - Disposition: Home, Self-Care Prognosis: Fair Rehab Potential: Fair I certify that the patient requires SNF services: No Overall status at discharge: patient is progressing back to baseline Medical - DS: Qual - VTE Deep Vein Thrombosis/Pulmonary Embolism Present on Admission: No
[2017-09-20] MEDS ORDERED: MAGNESIUM HYDROXIDE 30 ML ORAL.SUSP PO PRN (14:38)
[2017-09-20] MEDS ORDERED: DOCUSATE SODIUM 100 MG CAPSULE PO SCH (14:39)
[2017-09-20] MEDS: 0.9 % SODIUM CHLORIDE 1,000 ML IV SCH (14:45)
[2017-09-21 16:03] LABS: Legionella pneumophilia Ag, Ur NOT DETECTED
== END 2017-09-20 18:55 | disposition home or self-care (01) | DRG 194 ==
LOC: ED 08:40 → ICU 11:45
PROVIDERS: ADMIT Internal Medicine; ATTEND Internal Medicine

== ENCOUNTER 2019-09-28 11:51 | Inpatient (IN) ==
--- NOTE | 2019-09-28 12:48 | Cat Scan Report ---
CLINICAL INFORMATION: Trauma COMPARISON: Abdomen and pelvic CT 12/24/2007. TECHNIQUE: 0.625 mm helical slices were obtained from the mid L4 through the subtrochanteric regions. Following reconstruction, 2.5 mm sagittal, coronal and axial reformations were processed. The exam was reviewed in bone and soft tissue windows. The exam was performed using radiation dose optimization techniques including, but not limited to, automated exposure control, adjustment of mA and/or kV according to patient size and use of iterative reconstruction technique. FINDINGS: There is a subtle nondisplaced vertically oriented fracture along the left sacral ala. Moderately comminuted, mildly displaced fractures of the right superior pubic ramus with extension to the pubic symphysis and minimally displaced oblique fracture through the inferior right pubic ramus appreciated. There are also two nondisplaced oblique fracture of the left inferior pubic ramus. A chronic right L5-S1 spondylolytic defect is present, but no evidence of spondylolisthesis. At L4-5, moderate broad disc protrusion results in moderate right and mild left IV foraminal narrowing and severe central canal narrowing. At L5-S1 mild broad disc protrusion mildly impinges the anterior thecal sac. A 2.3 cm arachnoid cyst in the posterior central canal at S3 is unchanged. Hysterectomy/oophorectomy noted. Visualized small and large bowel grossly normal. No free air or free fluid or adenopathy. IMPRESSION: 1. Vertically oriented nondisplaced fracture through the lateral left sacral ala. 2. Mildly comminuted, minimally displaced fracture right superior pubic ramus extending to pubic symphysis. 3. Mildly displaced, oblique fracture inferior right pubic ramus 4. Two nondisplaced fractures left inferior pubic ramus. 5. Chronic right L5-S1 spondylolysis. Degenerative stenosis at L4-5 as please see above. 2.3 cm arachnoid cyst in the posterior central canal at S3 - unchanged Interpreted and Authenticated by: Kojo Paul 09/28/19
--- NOTE | 2019-09-28 12:51 | XRay Report ---
CLINICAL INFORMATION: Trauma COMPARISON: None. FINDINGS: A mildly comminuted transverse fracture through the olecranon portion of the proximal ulna appreciated. The olecranon fragment is displaced 16 mm posteriorly and approximately 10 mm superiorly. Marked soft tissue swelling. Large effusion present with 2-3 loose bodies overlying the radiocapitellar joint IMPRESSION: Mildly comminuted displaced fractures of the olecranon. Large joint effusion with loose bodies in the radiocapitellar joint. Interpreted and Authenticated by: Kojo Paul 09/28/19
[2019-09-28 13:35] LABS: Basophils # (Auto) 0.02 K/mcL (0.00-0.30); Basophils % (Auto) 0.2 % (0.0-2.0); Eosinophils # (Auto) 0.04 K/mcL (0.00-0.70); Eosinophils % (Auto) 0.4 % (0.0-7.0); Granulocytes % (Auto) 88.3 % (38.0-78.0); Hematocrit 30.3 % (34.1-44.9); Hemoglobin 10.2 g/dL (11.2-15.7); Lymphocytes # (Auto) 0.73 K/mcL (1.50-4.80); Lymphocytes % (Auto) 6.7 % (15.5-49.0); Mean Cell Volume 88.1 fL (80.0-100.0); Mean Corpuscular HGB Conc 33.7 g/dL (31.0-36.0); Mean Platelet Volume 11.1 fL (7.4-10.4); Monocytes # (Auto) 0.48 K/mcL (0.10-0.90); Monocytes % (Auto) 4.4 % (1.0-12.0); Platelet Count 185 K/mcL (140-440); RBC 3.44 M/mcL (3.59-5.38); Red Cell Distribution Width 13.5 % (11.5-14.5); WBC 10.9 K/mcL (4.50-11.00)
[2019-09-28 13:56] LABS: ALT/SGPT 15 U/l (0-40); AST/SGOT 30 U/l (0-37); Albumin 4.2 gm/dL (3.2-5.2); Albumin/Globulin Ratio 1.3 (1.0-2.3); Alkaline Phosphatase 62 U/L (39-117); Bilirubin,Total 0.4 mg/dL (0.0-1.0); Blood Urea Nitrogen 14 mg/dl (8-23); Calcium 9.5 mg/dl (8.6-10.4); Carbon Dioxide 25 mmol/L (22-30); Globulin 3.2 gm/dL (2.2-3.7); Glomerular Filtration Rate 58; Glucose 122 mg/dL (70-105)
[2019-09-28 13:57] LABS: Chloride 93 mmol/L (96-108)
[2019-09-28 14:27] LABS: Appearance,Urine HAZY; Bacteria,Urine 0 /hpf (0); Bilirubin,Urine NEG (NEG); Color,Urine YELLOW; Culture Indicated,Urine NO; Glucose,Urine (UA) NEGATIVE (NEG); Ketones,Urine NEG (NEG); Leukocyte Esterase,Urine NEG /uL (NEG); Nitrate,Urine NEG (NEG); Protein,Urine NEG (NEG); Specific Gravity,Urine 1.011 (1.000-1.035); Urine Blood NEG mg/dL (<0.03); Urine RBC < 1 /hpf (0-1); Urine Squamous Epithelial Cell < 1 /hpf (0-4); Urine WBC 1 /hpf (0-4); Urobilinogen,Urine NEG (NEG)
--- NOTE | 2019-09-28 15:06 | XRay Report ---
CLINICAL INFORMATION: fall, pelvic fracture, requested by ortho COMPARISON: None. FINDINGS: Mildly comminuted and mildly displaced fracture through the right superior pubic ramus/ symphysis junction appreciated. There is also a comminuted oblique fracture with mild displacement through the inferior right pubic ramus. There is disruption of the lateral arcuate lines in the left sacral ala suggesting vertical sacral fracture. Both SI and hip joints show only minimal degenerative change. The soft tissues are normal IMPRESSION: Fracture of the right superior pubic ramus, pubic symphysis and inferior pubic ramus with only mild displacement Suspect vertical fracture left sacral ala. Follow-up pelvic CT to be performed Interpreted and Authenticated by: Kojo Paul 09/28/19
--- NOTE | 2019-09-28 16:26 | Emergency Department Note ---
Fall HPI - General Chief Complaint: Fall Stated Complaint: pelvic pain Time Seen by Provider: 09/28/19 11:57 Source: patient, EMS Mode of arrival: EMS - History of Present Illness HPI Narrative: 84-year-old female presents with severe pelvic pain and left elbow pain after a fall. States she was at exercise class and tripped over a curb and fell to the ground. Did not hit her head. No loss of consciousness. No head, neck, or back pain. Has significant bilateral hip and pelvic pain. Also has left elbow swelling and pain with decreased range of motion. Denies being on any blood thinners other than aspirin. No treatments prior to arrival. States she can stand up but she cannot really walk because the pain in her pelvis is too severe. - Related Data Previous Rx's Medication Instructions Recorded Centrum Silver Women 8 mg iron-400 1 tab PO QDAY 30 Days #30 tab NS 06/01/15 mcg-300 mcg tablet calcium carbonate 500 mg calcium 500 mg PO BID 30 Days #60 tab 12/03/16 (1,250 mg) tablet denosumab 60 mg/mL subcutaneous 60 mg SUB-Q [id number] #1 ml 12/20/16 syringe celecoxib 200 mg capsule 200 mg PO QDAY PRN #60 cap 02/12/18 cholecalciferol (vitamin D3) 25 1,000 unit PO QDAY #30 cap 04/10/18 mcg (1,000 unit) capsule benazepril 20 mg tablet 20 mg PO QDAY #90 tab 05/07/18 Allergies Allergy/AdvReac Type Severity Reaction Status Date / Time Sulfa (Sulfonamide AdvReac Intermediate Itching Verified 09/28/19 11:55 Antibiotics) Review of Systems All systems ED: reviewed and negative except as stated. Fall PMH - Past Medical History PMF Narrative: Medical History Breast cancer (Chronic) Colon cancer (Chronic) Hypertension, essential (Chronic) Low complement measurement (Chronic) Disorder of connective tissue (Suspected) Connective tissue disease overlap syndrome (Chronic) Leukopenia (Chronic) Stomach tumor (benign) (Chronic) Sicca syndrome, Sjogren's (Chronic) Schatzki's ring (Chronic) History of parotid cancer (Chronic) Pancytopenia (Chronic) Hypertonicity of bladder (Chronic) Osteoporosis (Chronic) Osteoarthritis (Chronic) Hyponatremia (Chronic) Anemia (Chronic) Arthritis (Inactive) Autoimmune disease (Inactive) Bleeding tendency (Inactive) Heart murmur (Inactive) Rheumatic disease (Inactive) Screening for thyroid disorder (Inactive) Past Surgical History H/O mastectomy (Acute) H/O: hysterectomy (Acute) History of colon surgery (Acute) History of intestinal surgery (Inactive) History of modified radical mastectomy of left breast (Inactive) Hx of biopsy (Inactive) Hx of colonoscopy (Inactive) Hx of hysterectomy (Inactive) Hx of right mastectomy (Inactive) Surgical history ED: Reports: hysterectomy - Social History smoking status: Never smoker Alcohol use: Reports: None Drug use: Reports: none Physical Exam Limitations: no limitations General appearance: alert Head: atraumatic, normocephalic, normal inspection Eye: Present: normal appearance, PERRL. Absent: conjunctival injection ENT: Present: normal exam, normal oropharynx, mucous membranes moist, TM's normal bilaterally, normal external ear exam Neck: Present: normal inspection, full ROM, trachea midline. Absent: tenderness, lymphadenopathy Chest: Present: symmetric chest wall rise Respiratory: Present: normal lung sounds bilaterally. Absent: respiratory distress, rales/crackles, wheezes, accessory muscle use Cardiovascular: Present: regular rate, normal heart sounds Extremities: Absent: normal inspection (Bilateral hip tenderness with any palpation as well as limited active and passive range of motion to lower extrem ities related to pain in the hips and pelvis. Left elbow with significant diffuse edema and tenderness. Greatly limited active and passive range of motion related to pain. Skin is intact.) Back: Present: normal inspection. Absent: vertebral tenderness Neurological: Present: alert, oriented X3 Psychiatric: Present: normal affect, normal mood Skin: Present: warm, dry, intact Course Course Narrative: At 1530 Dr. Flanagan did see and evaluate the patient. (orthopedics) Vital Signs Blood Pressure 221/99 09/28/19 12:17 Pulse Rate 75 09/28/19 16:21 Blood Pressure 144/95 09/28/19 16:21 Pulse Oximetry (%) 93 09/28/19 16:21 Fall - Lab Data Lab results reviewed: Yes I reviewed the patient's lab results. Result diagrams: 09/28/19 13:23 09/28/19 13:23 Lab Results 09/28/19 09/28/19 09/28/19 Range/Units 13:23 13:23 13:43 WBC 10.9 (4.50-11.00) K/mcL RBC 3.44 L (3.59-5.38) M/mcL Hgb 10.2 L (11.2-15.7) g/dL Hct 30.3 L (34.1-44.9) % MCV 88.1 (80.0-100.0) fL MCH 29.7 (26.0-34.0) pg MCHC 33.7 (31.0-36.0) g/dL RDW 13.5 (11.5-14.5) % Plt Count 185 (140-440) K/mcL MPV 11.1 H (7.4-10.4) fL Gran % 88.3 H (38.0-78.0) % Lymph % (Auto) 6.7 L (15.5-49.0) % [place] % (Auto) 4.4 (1.0-12.0) % Eos % (Auto) 0.4 (0.0-7.0) % Baso % (Auto) 0.2 (0.0-2.0) % Gran # 9.64 H (1.80-8.00) K/mcL Lymph # (Auto) 0.73 L (1.50-4.80) K/mcL [place] # (Auto) 0.48 (0.10-0.90) K/mcL Eos # (Auto) 0.04 (0.00-0.70) K/mcL Baso # (Auto) 0.02 (0.00-0.30) K/mcL Sodium 131 L (133-145) mmol/L Potassium 4.3 (3.3-5.1) mmol/L Chloride 93 L (96-108) mmol/L Carbon Dioxide 25 (22-30) mmol/L Anion Gap 13.0 (8-16) BUN 14 (8-23) mg/dl Creatinine 0.9 (0.6-1.1) mg/dl GFR Calculation 58 Glucose 122 H (70-105) mg/dL Calcium 9.5 (8.6-10.4) mg/dl Total Bilirubin 0.4 (0.0-1.0) mg/dL AST 30 (0-37) U/l ALT 15 (0-40) U/l Alkaline Phosphatase 62 (39-117) U/L Total Protein 7.4 (5.9-8.4) gm/dL Albumin 4.2 (3.2-5.2) gm/dL Globulin 3.2 (2.2-3.7) gm/dL Albumin/Globulin Ratio 1.3 (1.0-2.3) Urine Color Yellow Urine Appearance Hazy Urine pH 8.0 (5.0-9.0) Ur Specific [place] 1.011 (1.000-1.035) Urine Protein Neg (NEG) mg/dL Urine Glucose (UA) Negative (NEG) mg/dL Urine Ketones Neg (NEG) mg/dL Urine Occult Blood Neg (<0.03) mg/dL Urine Nitrate Neg (NEG) Urine Bilirubin Neg (NEG) mg/dL Urine Urobilinogen Neg (NEG) mg/dL Ur Leukocyte Esterase Neg (NEG) /uL Urine RBC < 1 (0-1) /hpf Urine WBC 1 (0-4) /hpf Ur Squamous Epith Cells < 1 (0-4) /hpf Urine Bacteria 0 (0) /hpf Ur Culture Indicated? No - Radiology Data Radiology results reviewed: Yes I reviewed the patient's radiology results. Disposition Pt seen by REGULATORY TECHNICIAN/PA only: Yes Clinical Impression: Fall, Pelvic fracture, Elbow fracture, left Disposition: Xfer As Outpt/Obs ([facility]) Condition: Fair Referrals: Alberto White MD [Primary Care Provider] - Francoise Flanagan MD [Physician] -
--- NOTE | 2019-09-28 16:50 | Internal Medicine Consult Note ---
Medical - CN: HPI - Data of Consult Consult date: 09/28/19 Requesting physician: Francoise Flanagan Primary Care Provider: Alberto White MD - Consult Narrative History of present illness: Ms. Koroma is a 84 year old F Patient presents to the ED after tripping on a curb falling in a parking lot landing on her left elbow left side. Left pelvic pain left arm pain. In the ED she found to have a mildly comminuted displaced fracture of the olecranon. Also found to have a nondisplaced fracture through the lateral left sacral ala and a fracture through the superior pubic ramus as well as the oblique fracture with the right inferior pubic ramus and left inferior pubic ramus. Pelvic findings were discussed with orthopedic surgeon who in consult with [place] orthopedic surgeon felt it was not surgical. Patient will be admitted to [facility] for olecranon repair. She has a history of chronic hyponatremia and anemia and MGUS. Review of Systems: Pertinent positives above. Denies headache/fever/chills/nausea/vomiting/chest or abdominal pain/cough/dyspnea/diarrhea. Remaining 10 point review of system reviewed negative. 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 (Chronic) Stomach tumor (benign) (Chronic) Sicca syndrome, Sjogren's (Chronic) Schatzki's ring (Chronic) History of parotid cancer (Chronic) Pancytopenia (Chronic) Hypertonicity of bladder (Chronic) Osteoporosis (Chronic) Osteoarthritis (Chronic) Hyponatremia (Chronic) Anemia (Chronic) Arthritis (Inactive) Autoimmune disease (Inactive) Bleeding tendency (Inactive) Heart murmur (Inactive) Rheumatic disease (Inactive) Screening for thyroid disorder (Inactive) Past Surgical History H/O mastectomy (Acute) H/O: hysterectomy (Acute) History of colon surgery (Acute) History of intestinal surgery (Inactive) History of modified radical mastectomy of left breast (Inactive) Hx of biopsy (Inactive) Hx of colonoscopy (Inactive) Hx of hysterectomy (Inactive) Hx of right mastectomy (Inactive) Family History none listed Dementia mother Arthritis Essential hypertension Social History (Last Updated 02/12/18 @ 14:58 by Emery Tai MD) Denies tobacco Rare alcohol Lives at home with her Medical - CN: Meds Home Medications Medication Instructions Recorded Confirmed Type Centrum Silver Women 8 mg iron-400 1 tab PO QDAY 30 Days #30 tab NS 06/01/15 02/12/18 Rx mcg-300 mcg tablet calcium carbonate 500 mg calcium 500 mg PO BID 30 Days #60 tab 12/03/16 02/12/18 Rx (1,250 mg) tablet denosumab 60 mg/mL subcutaneous 60 mg SUB-Q [id number] #1 ml 12/20/16 02/12/18 Rx syringe celecoxib 200 mg capsule 200 mg PO QDAY PRN #60 cap 02/12/18 02/12/18 Rx cholecalciferol (vitamin D3) 25 1,000 unit PO QDAY #30 cap 04/10/18 Rx mcg (1,000 unit) capsule benazepril 20 mg tablet 20 mg PO QDAY #90 tab 05/07/18 Rx Allergies Allergy/AdvReac Type Severity Reaction Status Date / Time Sulfa (Sulfonamide AdvReac Intermediate Itching Verified 09/28/19 11:55 Antibiotics) Medical - CN: Exam - Constitutional Vitals: Pulse Resp BP Pulse Ox 75 18 144/95 93 09/28/19 16:21 09/28/19 11:52 09/28/19 16:21 09/28/19 16:21 Exam: General: Alert, Awake, No acute Distress Eyes/N/T: EOMI, PERRL, dry MM Head/Neck: neck supple, normocephalic atraumatic CV: RRR, No murmurs, normal s1/s2 Pulm: Clear b/l, no wheezing/rhonchi/rales Abd: soft, nontender, +BS x4 Ext: no clubbing/cyanosis/edema Neuro: Alert, no focal deficits, moves all extremities, CN 2-12 grossly intact, symmetrical strength b/l upper/lower, sensations intact b/l upper/lower Skin: warm/dry Medical - CN: Result - Labs CBC & Chem 7: 09/28/19 13:23 09/28/19 13:23 Labs: Short CBC 09/28/19 Range/Units 13:23 WBC 10.9 (4.50-11.00) K/mcL Hgb 10.2 L (11.2-15.7) g/dL Hct 30.3 L (34.1-44.9) % Plt Count 185 (140-440) K/mcL BMP 09/28/19 13:23 Sodium 131 L Potassium 4.3 Chloride 93 L Carbon Dioxide 25 BUN 14 Creatinine 0.9 Glucose 122 H Calcium 9.5 Liver Function 09/28/19 Range/Units 13:23 Total Bilirubin 0.4 (0.0-1.0) mg/dL AST 30 (0-37) U/l ALT 15 (0-40) U/l Alkaline Phosphatase 62 (39-117) U/L Albumin 4.2 (3.2-5.2) gm/dL Urine 09/28/19 Range/Units 13:43 Urine Color Yellow Urine Appearance Hazy Urine pH 8.0 (5.0-9.0) Ur Specific [place] 1.011 (1.000-1.035) Urine Protein Neg (NEG) mg/dL Urine Glucose (UA) Negative (NEG) mg/dL Medical - CN: A/P - Narrative A/P Narrative: A: *Left olecranon fracture: *Pelvic Fx: nonoperable *MGUS: *Anemia, chronic: *hypoNatremia, chronic: was on salt tabs for a while after 2018 hospitalization for CAP *HTN: *Osteoporosis: *h/o breast/colon CA: P: -Dr. flanagan for ortho -pain control -cont home ACEI - -pt/ot -CM for placement -ppx: [facility](post-op per ortho)
[2019-09-28] MEDS ORDERED: ONDANSETRON 4 MG/2 ML VIAL IV PRN (16:53)
[2019-09-28] MEDS ORDERED: 0.9 % SODIUM CHLORIDE 1,000 ML IV SCH ×2 (17:00)
--- NOTE | 2019-09-28 18:35 | History and Physical Report ---
DATE OF ADMISSION: 09/28/2019 DATE OF CONSULTATION: 09/28/2019 REASON FOR CONSULTATION: 1. Left olecranon fracture. 2. Pelvic ring injury. CONSULTING PROVIDER: helena Coleman at [facility]. HISTORY OF PRESENT ILLNESS: The patient is an 84-year-old female who presents after a ground level fall. She reports tripping on a curb, fell onto her left side primarily on her elbow. She denies any loss of consciousness or hitting her head. She presented to the Emergency Department for further evaluation and treatment. PAST MEDICAL HISTORY: Significant for breast cancer, currently in remission, colon cancer, hypertension, Sjogren's, osteoporosis. PAST SURGICAL HISTORY: Bilateral breast mastectomies for cancer. She had hysterectomy as well as history of colon surgery. ALLERGIES: SULFA ANTIBIOTICS. MEDICATIONS: Has currently stopped her bisphosphonates, but been on them for years, Celebrex and benazepril for hypertension. SOCIAL HISTORY: She resides with her , has been independent at home, nontobacco user. REVIEW OF SYSTEMS: Recently, she has been complaining of slight dizziness with lying supine, which resolves in less than a minute. Otherwise, 12-point review of systems is negative. PHYSICAL EXAMINATION: VITAL SIGNS: The patient has heart rate of 70, blood pressure 140/78, pulse ox 96% on room air. GENERAL: She is awake, alert, oriented, interactive, appropriate, in no acute distress. HEENT: Head is atraumatic. EXTREMITIES: Right upper extremity appears atraumatic. She has full active range of motion without any discomfort. Left upper extremity, her skin is intact throughout. She has focal tenderness about the elbow itself along with a large amount of hematoma about the olecranon to the mid forearm aspect. She has sensation intact throughout the hand as well as able to make a fist and a flat hand and her hand is warm and well perfused. Pelvis is painful to compression; however, stable. Her bilateral lower extremities, she has no pain with log roll of either of her hips. No tenderness throughout her extremities. She has no knee joint effusion or swelling about the foot or the ankle. She can dorsiflex and plantarflex bilateral feet. Her sensation is intact throughout the foot as well as a warm and well perfused. IMAGING: She has x-rays of her left elbow demonstrating a displaced transverse olecranon fracture with extension into the joint. She has a CT of her pelvis demonstrating a left vertical nondisplaced sacral fracture as well as ipsilateral superior and inferior rami fracture with a right superior rami fracture. LABORATORY DATA: She has a white count of 10.9. Her H and H is 10.2 and 30. Platelet count is 185. Chemistry, her glucose is 122, creatinine 0.9. Urine is negative for UTI. EKG demonstrates an old infarct, questionable. ASSESSMENT: This 84-year-old female with multiple fractures of the pelvis as well as a displaced left olecranon fracture. PLAN: I discussed these fractures with her at length. The olecranon fracture, I would recommend operative fixation to restore the joint as well as the extensor mechanism of the extremity to give her improved function. Regarding her pelvis, I did contact the traumatologist in [place] who reviewed the CT which he recommends nonoperative treatment and can be partial weightbearing with transfers. He feels the left side is more impacted type fracture pattern which is amenable to a nonoperative treatment. Given this, we will consult internal medicine regarding the EKG findings with their recommendations; however, after discussion with the patient, we will proceed with operative fixation of left olecranon fracture with open reduction and internal fixation. She will have to be admitted to the hospital as well as she is not mobile and will require rehab facility thereafter. GENIA:lavern Job ID: [id number] Doc ID: [id number] Francoise CARREON
[2019-09-28] MEDS ORDERED: ePHEDrine 50 MG/ML AMPUL IV ONE (22:10)
[2019-09-28] MEDS ORDERED: PHENYLEPHRINE 10 MG/ML VIAL IV ONE (22:10)
[2019-09-28] MEDS ORDERED: LIDOCAINE HCL/PF 100 MG/5 ML SYRINGE IV ONE (22:10)
[2019-09-28] MEDS ORDERED: DEXAMETHASONE 10 MG/ML VIAL IV ONE (22:10)
[2019-09-28] MEDS ORDERED: PROPOFOL 200 MG/20 ML VIAL IV ONE (22:10)
[2019-09-28] MEDS ORDERED: ROPIVACAINE HCL/PF 20 ML VIAL IJ ONE (22:10)
[2019-09-28] MEDS ORDERED: ONDANSETRON 4 MG/2 ML VIAL IV ONE (22:10)
[2019-09-28] MEDS: 0.9 % SODIUM CHLORIDE 10 ML SYRINGE IV SCH (22:48)
[2019-09-28] MEDS: VANCOMYCIN 1 GM VIAL TOPICAL SCH (23:32)
--- NOTE | 2019-09-28 23:55 | Brief Operative Note ---
Date of procedure: 09/28/19 Pre-op diagnosis: left olecranon fracture, pelvic ring fracture Post-op diagnosis: same Procedure: ORIF left olecranon fracture Grafts/Implants: Yes (K-wires x 2 18 guage wire) Anesthesia: GETA, regional Findings: comminuted olecranon fracture, intra articular extension Complications: none Surgeon: Francoise Flanagan General Foreman: Anselmo Pierson Estimated blood loss (cc): 5 Tourniquet Time (Minutes): 85 Specimens Removed/Pathology: none sent Condition: stable Disposition: PACU
[2019-09-29] MEDS ORDERED: MAGNESIUM HYDROXIDE 30 ML ORAL.SUSP PO PRN (00:02)
[2019-09-29] MEDS ORDERED: BENZOCAINE/MENTHOL 1 LOZENGE PO PRN ×2 (00:02→00:12)
[2019-09-29] MEDS ORDERED: POLYETHYLENE GLYCOL 3350 17 GM PACKET PO PRN (00:02)
[2019-09-29] MEDS ORDERED: BISACODYL 10 MG SUPP.RECT PR PRN (00:02)
[2019-09-29] MEDS ORDERED: FLEETS ADULT ENEMA PR PRN (00:02)
[2019-09-29] MEDS ORDERED: METHOCARBAMOL 1,000 MG/10 ML VIAL IV PRN ×2 (00:02→00:12)
[2019-09-29] MEDS ORDERED: ACETAMINOPHEN 1,000 MG/100 ML BOTTLE IV ONE ×2 (00:12→00:16)
[2019-09-29] MEDS ORDERED: ONDANSETRON 4 MG/2 ML VIAL IV PRN (00:12)
[2019-09-29] MEDS ORDERED: IPRATROPIUM/ALBUTEROL 3 ML AMPUL.NEB NEB PRN (00:12)
[2019-09-29] MEDS ORDERED: LACTATED RINGERS 250 ML IV PRN (00:12)
[2019-09-29] MEDS ORDERED: NALOXONE HCL 0.4 MG/ML VIAL IV PRN (00:12)
[2019-09-29] MEDS ORDERED: fentaNYL 100 MCG/2 ML VIAL IV PRN (00:12)
[2019-09-29] MEDS ORDERED: METOPROLOL TARTRATE 5 MG/5 ML VIAL IV PRN (00:12)
[2019-09-29] MEDS ORDERED: FLUMAZENIL 0.1 MG/ML ML IV PRN (00:12)
[2019-09-29] MEDS ORDERED: LABETALOL 5 MG/ML ML IV PRN (00:12)
[2019-09-29] MEDS ORDERED: LACTATED RINGERS 1,000 ML IV SCH (00:15)
[2019-09-29] MEDS: ACETAMINOPHEN 1,000 MG/100 ML BOTTLE IV SCH ×3 (01:38→15:56)
[2019-09-29] MEDS: LACTATED RINGERS 1,000 ML IV SCH ×2 (01:44→14:15)
[2019-09-29] MEDS ORDERED: ceFAZolin 1 GM VIAL ONE (01:48)
[2019-09-29] MEDS: ceFAZolin 2 GM in DEXTROSE 5% IN WATER 50 ML IV SCH ×2 (01:50→01:52)
[2019-09-29] MEDS: ceFAZolin 1 GM VIAL IV SCH ×2 (01:52→14:16)
--- NOTE | 2019-09-29 03:57 | XRay Report ---
CLINICAL INFORMATION: s/p ORIF olecranon fx COMPARISON: Preoperative films 09/28/2019 1220 FINDINGS: Olecranon fracture has been reduced to anatomic alignment and is now transfixed by pins and cerclage wires. The elbow is anatomically aligned without effusion or evidence for loose body. A dorsal plaster splint maintains the elbow at 90 degrees. IMPRESSION: ORIF olecranon fracture - anatomic alignment Interpreted and Authenticated by: Kojo Paul 09/29/19
[2019-09-29] MEDS: 0.9 % SODIUM CHLORIDE 10 ML SYRINGE IV SCH ×3 (04:28→21:29)
--- NOTE | 2019-09-29 07:09 | Orthopedic Progress Note ---
Subjective Patient information: Note initiated : 09/29/19 at 7:05 am Service Date, if different from initiated Date: [] Patient: Jannee Koroma 84 y/o F admitted on 09/28/19 for left olecranon fracture and pelvic fracture. Her pain is managed. Denies pain, CP, SOB, N/V, abd pain, fevers/chills. She states her left hand is numb and she is unable to move it. Chief Complaint: left elbow pain. Pertinent ROS: see HPI. Objective Vital signs: Vital Signs Temp Pulse Pulse Resp BP BP Pulse Ox 09/29/19 03:51 97.6 F 79 14 116/62 92 09/29/19 02:51 81 132/68 92 09/29/19 02:21 74 130/68 91 09/29/19 01:51 76 136/69 91 09/29/19 01:36 75 133/71 90 09/29/19 01:22 80 139/71 92 09/29/19 01:06 76 133/69 93 09/29/19 00:51 97.6 F 82 14 146/80 91 09/29/19 00:45 97.8 F 88 11 L 141/63 94 09/29/19 00:35 93 H 14 145/66 96 09/29/19 00:30 90 12 145/66 96 09/29/19 00:25 97.9 F 93 H 12 134/60 97 09/29/19 00:20 79 11 L 127/56 100 09/29/19 00:15 78 9 L 125/52 100 09/29/19 00:10 97.5 F 83 10 L 126/52 100 09/28/19 19:59 98.5 F 74 12 151/83 95 09/28/19 19:48 99 H 18 95 09/28/19 19:41 97 H 18 129/72 94 09/28/19 19:30 77 18 93 09/28/19 19:21 80 18 129/71 94 09/28/19 19:01 129/67 09/28/19 18:41 136/74 09/28/19 18:21 145/79 09/28/19 18:01 152/76 09/28/19 17:41 141/86 09/28/19 17:21 152/75 09/28/19 17:01 149/75 09/28/19 16:43 74 95 09/28/19 16:42 78 134/80 95 09/28/19 16:21 75 144/95 93 09/28/19 16:01 78 136/74 97 09/28/19 15:41 72 158/79 95 09/28/19 15:21 70 140/78 96 09/28/19 15:01 64 138/75 94 09/28/19 14:31 73 172/92 96 09/28/19 14:18 72 95 09/28/19 14:17 69 159/93 95 09/28/19 14:02 68 177/93 96 09/28/19 13:46 61 207/89 94 09/28/19 13:32 59 L 190/89 96 09/28/19 13:17 60 185/87 94 09/28/19 13:06 61 195/89 94 09/28/19 12:34 56 L 204/80 93 09/28/19 12:17 221/99 09/28/19 11:52 18 Intake and Output 09/28/19 09/29/19 09/29/19 21:59 05:59 13:59 Intake Total 1850 Output Total 675 Balance 1175 Intake: IV 100 Oral 0 IV - Manual Only 1750 Output: Urine Catheter Amount 625 Estimated Blood Loss 50 Other: Urine Appearance Clear Uretheral (Gomez) Clear Urine Color Dark Yellow Uretheral (Gomez) Pale Urine Odor Strong Weight 125 lb 8 oz Intake & Output: Intake & Output 09/28/19 09/29/19 09/29/19 21:59 05:59 13:59 Intake Total 1850 Output Total 675 Balance 1175 Weight 125 lb 8 oz Intake: IV 100 Oral 0 IV - Manual Only 1750 Output: Urine Catheter Amount 625 Estimated Blood Loss 50 Other: Urine Appearance Clear Uretheral (Gomez) Clear Urine Color Dark Yellow Uretheral (Gomez) Pale Urine Odor Strong Dressing: Yes clean, Yes dry, Yes intact, Yes splint in place Weight bearing status: partial (protected WB with transfers, NWB with LUE.) Neurological exam IM: Yes alert, Yes oriented X3, Yes neurovascular intact Additional Comments: LUE: splint in place. She is unable to move her right hand or wrist with decreased sensation over the wrist/hand. Brisk capillary refill of the hand < 2 seconds. Extremities exam IM: No calf tenderness, Yes normal inspection, No Martin's sign, Yes Foot pink and warm - Labs CBC & BMP: 09/28/19 13:23 09/28/19 13:23 Labs: 09/28/19 13:23 Hgb 10.2 L Hct 30.3 L Assessment and Plan - Narrative A/P Narrative: Pt is an 84 yo female POD #1 s/p ORIF left olecranon fracture. Pelvic fracture is stable, nonoperative at this time. 3V pelvis ordered for this AM. Pt received supraclavicular block which is likely the etiology of her LUE decreased sensation and movement. Will watch. --PT/OT: protected WB on transfers with pelvic fracture. May sit up in chair for meals. --NWB with LUE, may work on shoulder mobility. --continue diet --continue pain medications --prophy: mohamud Dixon's, IS --dispo: pt will need rehab
--- NOTE | 2019-09-29 08:16 | Operative Note ---
DATE OF OPERATION: 09/28/2019 PREOPERATIVE DIAGNOSES: 1. Left displaced olecranon fracture with intraarticular extension. 2. Pelvic ring fracture. POSTOPERATIVE DIAGNOSES: 1. Left displaced olecranon fracture with intraarticular extension. 2. Pelvic ring fracture. PROCEDURE PERFORMED: Open reduction and internal fixation of left intraarticular olecranon fracture. SURGEON: Francoise Flanagan M.D. PRINTMAKER: Anselmo Pierson PA-C. The PA's assistance was required for the safe and efficient completion of the entire case. This provider's expertise and technical skill were required throughout the case. The PA assisted with preoperative coordination, intraoperative retraction, wound closure, dressing and splint application, as well as postoperative documentation and care coordination. ANESTHESIA: General with a peripheral nerve block. IV FLUIDS: 1500 mL lactated Ringer's. ESTIMATED BLOOD LOSS: Minimal. TOURNIQUET TIME: 85 minutes at 200 mmHg. IV ANTIBIOTICS: 2 grams Ancef. IMPLANTS: Two 1.6 K-wires and one 18-gauge wire. INTRAOPERATIVE COMPLICATIONS: None apparent. PATHOLOGY/LAB: None. INDICATIONS FOR PROCEDURE: The patient is an 84-year-old female who fell with a ground-level fall, mechanical nature, this afternoon resulting in a pelvic ring injury, as well as a left closed displaced intraarticular olecranon fracture. I did discuss the pelvic fracture component with a traumatologist from [place] and deemed nonoperative. However, the olecranon is an operative fracture. I discussed risks and benefits of the surgery, as well as postoperative rehabilitation course. She wished to proceed in that fashion. DESCRIPTION OF PROCEDURE: The patient was met in the preoperative holding area where site was verified and marked with the patient's input. She was then taken back to the operating room where she underwent successful peripheral nerve block and started general anesthesia via LMA. Her left upper extremity was cleaned with a chlorhexidine wipe and a padded tourniquet was placed about the proximal arm and then prepped and draped in the usual sterile fashion with ChloraPrep. A surgical timeout was performed to verify patient identity, correct procedure being performed, and correct extremity being operated on. Everybody was in agreement. Esmarch was utilized to exsanguinate the extremity. Tourniquet was inflated to 200 mmHg. She was in the supine position given the pelvic fracture. An approximately 9 cm incision was made over the subcutaneous border of the ulna, curvilinear in nature to the radial aspect and proximal to the fracture site itself. The skin was sharply incised with dissection down to the subcutaneous border of the ulna. The ECU and FCU muscles were elevated off the ulna via subperiosteal dissection out to the fracture site which was easily identified. The fracture hematoma was evacuated and was irrigated with normal saline. The fracture fragment was easily identified. It was reduced with 2 point to point clamps and verified underneath small C-arm. Initially I attempted to place a plate. However, the fracture fragment itself had a comminuted split fragment on the radial aspect. The plate would not have captured this fragment, thus I elected to proceed with a tension band construct. The two K-wires were placed through the fracture fragments with [id number] clamps and held in a reduced fashion. One of the pins was bicortical. The other one was not bicortical. However, it had good fixation. I was happy with the placement of it. I drilled a 2 mm hole in the ulna distally. Placed an 18-gauge wire through this. The fracture itself was more amenable to cerclage-type fixation. However, I did not want the wire to displace volarly. I thus placed #5 FiberWire over the subcutaneous border to encorporate the 18-gauge wire after tensioning via twisting it over the triceps tendon proximally. This reduced the fracture and compressed it which viewed underneath small fluoroscopy and was stable with elbow flexion past 90 degrees. At this point, the K-wires were backed out a short distance, made in a U-shaped fashion, clipped short, and then tamped back into the bone overlying the K-wire. Once this was complete, the wound was copiously irrigated. The subperiosteal flaps were closed with an 0 Vicryl running suture. Proximally it was closed over the K-wires and the triceps tendon as well and subcutaneous with 3-0 Vicryl. Skin was closed with 3-0 nylon. The skin was cleaned and dried. Xeroform along with fluffs, Webril, and a posterior splint were applied. The patient was awoken from anesthesia and transferred to PACU in stable condition. POSTOPERATIVE PLAN: The patient will be admitted back to the floor given her limited mobility status for eventual placement to rehabilitation center. DLW:jeffrey Hemphill: 09/29/2019 00:00:25 Job ID: [id number] Doc ID: [id number] Francoise STODDARDD
[2019-09-29] MEDS ORDERED: NON FORMULARY MEDICATION 1 DOSE MISCELL (Benazepril 20 MG) PO SCH (09:00)
--- NOTE | 2019-09-29 09:13 | XRay Report ---
CLINICAL INFORMATION: pelvis fx COMPARISON: 09/28/2019. FINDINGS: Mildly comminuted and mildly displaced fracture through the right superior pubic ramus/ symphysis junction appreciated. There is also a comminuted oblique fracture with mild displacement through the inferior right pubic ramus. There is disruption of the lateral arcuate lines in the left sacral ala compatible with a known vertical sacral fracture. Both SI and hip joints show only minimal degenerative change. The soft tissues are normal IMPRESSION: Fracture of the right superior pubic ramus, pubic symphysis and inferior pubic ramus with only mild displacement - no change Nondisplaced fracture - left inferior pubic ramus Nondisplaced vertical fracture left sacral ala - no change. Interpreted and Authenticated by: Kojo Paul 09/29/19
[2019-09-29] MEDS: TIMOLOL 0.5% OPHTH DROPS BOTTLE 5ML OS SCH ×3 (09:26→21:29)
[2019-09-29 09:32] LABS: Blood Urea Nitrogen 16 mg/dl (8-23); Calcium 8.6 mg/dl (8.6-10.4); Carbon Dioxide 22 mmol/L (22-30); Chloride 92 mmol/L (96-108); Glomerular Filtration Rate 67; Glucose 185 mg/dL (70-105)
--- NOTE | 2019-09-29 10:45 | Internal Med Progress Note ---
Medical - PN: Subj Patient information: Note initiated : 09/29/19 at 10:43 am Service Date, if different from initiated Date: [] Patient: Janene Koroma 84 y/o F admitted on 09/28/19 for pelvic pain. Chief Complaint: [] Interval history: Ms. Koroma is a 84 year old F Patient presents to the ED after tripping on a curb falling in a parking lot landing on her left elbow left side. Left pelvic pain left arm pain. In the ED she found to have a mildly comminuted displaced fracture of the olecra non. Also found to have a nondisplaced fracture through the lateral left sacral ala and a fracture through the superior pubic ramus as well as the oblique fracture with the right inferior pubic ramus and left inferior pubic ramus. Pelvic findings were discussed with orthopedic surgeon who in consult with [place] orthopedic surgeon felt it was not surgical. Patient will be admitted to [facility] for olecranon repair. She has a history of chronic hyponatremia and anemia and MGUS. 2/ Patient had surgical repair of the left elbow yesterday. No overnight events or new complaints. Slept well. Patient sodium decreased, has had chronic low sodium in the past. Fluid restrict and salt tabs. And urine studies. Review of Systems: denies headache/fever/chills/nausea/vomiting/chest or abdominal pain/cough/dyspnea/diarrhea. Otherwise see above. - Constitutional Vitals: Vital Signs Temp Pulse Resp BP Pulse Ox 96.6 F L 82 14 145/71 95 09/29/19 08:00 09/29/19 08:00 09/29/19 08:00 09/29/19 08:00 09/29/19 08:00 Period Temp Pulse Resp BP Sys/Donato Pulse Ox Last 24 Hr 96.6 F-98.5 F 56-99 9-18 116-221/52-99 90-100 Intake and Output 09/28/19 09/29/19 09/29/19 21:59 05:59 13:59 Intake Total 1850 Output Total 675 Balance 1175 Weight 56.926 kg Intake & Output: Intake & Output 09/28/19 09/29/19 09/29/19 21:59 05:59 13:59 Intake Total 1850 Output Total 675 Balance 1175 Weight 56.926 kg Intake: IV 100 Oral 0 IV - Manual Only 1750 Output: Urine Catheter Amount 625 Estimated Blood Loss 50 Other: Urine Appearance Clear Uretheral (Gomez) Clear Urine Color Dark Yellow Uretheral (Gomez) Pale Urine Odor Strong Exam: General: Alert, Awake, No acute Distress Eyes/N/T: EOMI, Head/Neck: neck supple, CV: RRR, No murmurs, Pulm: Clear b/l, no wheezing/rhonchi/rales Abd: soft, nontender, +BS x4 Ext: no clubbing/cyanosis/edema, left arm in sling Neuro: Alert, no focal deficits, moves all extremities, Skin: warm/dry Medical - PN: Obj Da - Labs CBC & Chem 7: 09/28/19 13:23 09/29/19 06:28 Labs: Abnormal Lab Results 09/29/19 09/28/19 09/28/19 06:28 13:23 13:23 RBC 3.44 L Hgb 10.2 L Hct 30.3 L MPV 11.1 H Gran % 88.3 H Lymph % (Auto) 6.7 L Gran # 9.64 H Lymph # (Auto) 0.73 L Sodium 127 L 131 L Chloride 92 L 93 L Glucose 185 H 122 H Meds: Medications Apixaban (Eliquis) 2.5 mg PO BID [facility] Bisacodyl (Dulcolax) 10 mg UT Q2-3DAYS PRN PRN Reason: Constipation Docusate Sodium (Colace) 100 mg PO BID [facility] Lactated Ringer's (Lactated Ringers) 1,000 mls @ 75 mls/hr IV .[id number] [facility] Last Admin: 09/29/19 01:44 Dose: 75 mls/hr Documented by: Acetaminophen (Ofirmev) 1,000 mg in 100 mls @ 200 mls/hr IV Q8H [facility]; Protocol Last Admin: 09/29/19 01:38 Dose: Not Given Documented by: Latanoprost (Xalatan Ophth Drops) 1 gtt OU HS [facility] Lisinopril (Zestril) 20 mg PO DAILY [facility] Magnesium Hydroxide (Milk Of Magnesia) 30 ml PO BIDP PRN PRN Reason: Constipation Methocarbamol (Robaxin) 750 mg IV Q6HP PRN PRN Reason: Muscle Spasm Morphine Sulfate (Morphine) 1 - 2 mg IV Q2HP PRN; Protocol PRN Reason: Per Pain Protocol Ondansetron HCl (Zofran) 4 mg IV Q4HP PRN; Protocol PRN Reason: Nausea And Vomiting Oxycodone HCl (Roxicodone) 0 mg PO Q4HP PRN; Protocol PRN Reason: Per Pain Protocol Polyethylene Glycol (Miralax) 17 gm PO DAILYP PRN PRN Reason: Constipation Senna (Senokot) 2 tab PO HS [facility] Sodium Biphosphate/Sodium Phosphate (Fleets Adult) 1 dose UT Q3-4DAYS PRN PRN Reason: Constipation Sodium Chloride (Saline Flush) 10 ml IV Q8 [facility] Last Admin: 09/29/19 04:28 Dose: Not Given Documented by: Throat Lozenges (Cepacol) 1 lozenge PO PRN PRN PRN Reason: Sore Throat Timolol Maleate (Timoptic 0.5% Ophth Drops) 1 gtt OS BID [facility] Last Admin: 09/29/19 09:26 Dose: Not Given Documented by: Vancomycin HCl (Vancomycin) 1 gm TOPICAL ONCE [facility]; Protocol Last Admin: 09/28/19 23:32 Dose: 1 gm Documented by: Medical - PN: A/P - Time Spent With Patient Total time spent is greater than 50% in coordination of care (as documented) at patient's floor/unit and/or counseling patient: - Narrative A/P Narrative: A: *Left olecranon fracture: *Pelvic Fx: nonoperable *MGUS: *Anemia, chronic: *hypoNatremia, chronic: was on salt tabs for a while after 2018 hospitalization for CAP *HTN: *Osteoporosis: *h/o breast/colon CA: P: -Dr. padilla for ortho -pain control -cont home ACEI -urine studies, then likely salt tabs, fluid restrict -pt/ot -CM for placement -ppx: scd(post-op per ortho) Medical - PN: Qual - VTE Deep Vein Thrombosis/Pulmonary Embolism Present on Admission: No
[2019-09-29] MEDS: LISINOPRIL 20 MG TABLET PO SCH (11:18)
[2019-09-29] MEDS: DOCUSATE SODIUM 100 MG CAPSULE PO SCH ×2 (11:18→21:28)
[2019-09-29] MEDS: SODIUM CHLORIDE 1 GM TABLET PO SCH ×3 (11:18→21:28)
[2019-09-29] MEDS: LATANOPROST OPHTH DROPS 2.5ML BOTTLE OU SCH ×2 (11:19→21:29)
[2019-09-29 11:48] LABS: Sodium, Urine Random 109 mmol/L
[2019-09-29 11:49] LABS: Osmolality,Urine 406 mOsm/kg (80-1000)
[2019-09-29] MEDS ORDERED: ceFAZolin 1 GM VIAL IV SCH (14:00)
--- NOTE | 2019-09-29 20:28 | Discharge Summary ---
Providers - Providers Patient information: Note initiated : 09/29/19 at 8:21 pm Service Date, if different from initiated Date: [] Patient: Janene Koroma 84 y/o F admitted on 09/28/19 for pelvic pain. Chief Complaint: [] Date of admission: 09/28/19 Discharge date: 10/01/19 Attending physician: Francoise Flanagan -Physical and Occupational Therapy -Case Management -Hospitalist Hospitalization Hospital Course: Patient was admitted from emergency department on 28 Sep 2019 after presenting with a pelvic ring fracture and displaced left olecranon fracture. On day of Admission, discussed pelvic fracture with traumatologist who reviewed CT scan with recommendation for non operative treatment with protected weight bearing on the left and as tolerated on right the right side. Patient underwent ORIF of left olecranon fracture on day of admission and transferred to the floor post operatively. She worked with therapy for mobilization/transfers. Her pain was controlled on oral pain medications by post op day 2. She was hemodynamically stable. She was voiding spontaneously, denied chest pain and shortness of breath. She was started on dvt prophylaxis the day after surgery given her tr auma, surgery and limited mobility. Once she met the 3 night criteria she was discharged to a [facility] facility given her lack of mobility with the pelvis fracture and non weight bearing status of left upper extremity. Discharge diagnosis: pelvic ring fracture, displaced left olecranon fracture Reason for admission: Pelvic ring fracture, displaced left olecranon fracture Procedures: ORIF left olecranon fracture Complications: None noted. Exam - Exam Clean and dry: Yes Weight bearing status: none (non weight bearing left upper extremity, Partial weight bearing left lower extremity, weight bearing as tolerated right lower extremity) Ortho Discharge Plan - General - Patient Instructions Diet: Regular Diet Activity: other (Left upper extremity- non weight bearing. Right lower extremity- partial weight bearing Left lower extremity- weight bearing as tolerated) Dressing Care: Other (Keep splint clean, dry and intact) Patient Education: Pelvic Fracture (DC), ORIF of an Elbow Fracture (DC) Additional Instructions: Discharge Instructions: Weight bearing as tolerated on left lower extremity with Partial weight bearing, Right lower extremity she can WBAT. No weight bearing with left upper extremity. You have the silver dressing, leave in place for 7-14 days then remove. If dressing becomes soiled (turns black), remove and use gauze 4x4 dressing and antimicrobial silver ointment ([id number]) and change daily. You may shower with dressing on, pat dry after shower. You may start showering on post op day #2. To avoid constipation while taking any narcotic pain medication, take an over the counter stool softener/laxative. Use ice packs as directed, on for 20 minutes at a time, throughout the day. Ice and elevation will help with pain and swelling. If you have any questions or concerns call your orthopedic surgeon before going to the emergency room. [facility] has a manager production physician 24 hours per day/7 days per week and can be reached at [phone]. Call for fevers above 100.5 or pain not controlled by medication. - Follow Up Plan Follow Up Appointments: Francoise Flanagan MD [Physician] - (13-14 days post surgery) Alberto White MD [Primary Care Provider] - (Please call and schedule a hospital follow up in 7-10 days.) Disposition: Xfer SNF Care Plan Goals: This discharge packet is provided to you to help keep you informed about your care. We want to ensure you get everything you need when you go home. You will also be receiving a call from us in a few days to follow up with you and see how you are doing since your discharge. This gives us a chance to listen to any concerns you maybe experiencing since you were discharged or any additional needs you may have, as well as providing us feedback on your care experience. We strive to always provide excellent care and thank you for your feedback and for choosing [facility]. Prognosis: Good Rehab Potential: Good I certify that the patient requires SNF services: Yes Overall status at discharge: patient is not back to baseline - Orders For Discharge Prescriptions: Apixaban [Eliquis] 2.5 mg PO BID #66 tab Prescription Printed oxyCODONE HCL [Roxicodone] 5 - 10 mg PO Q4HP PRN #60 tab PRN Reason: Per Pain Protocol Prescription Printed Sodium Chloride 1 gm PO DAILY #30 tab Prescription Printed Additional Discharge Orders: OT Discharge Order Location: None Selected Physical Therapy at Discharge - General Location: None Selected Pending Studies Resuscitation Status Full Code Diet Regular Diet Start FriSep 29 0003 Docusate Sodium (Colace) 100 mg PO BID [facility] Last Admin: 09/29/19 11:18 Dose: 100 mg Documented by: JEFFREY Lactated Ringer's (Lactated Ringers) 1,000 mls @ 75 mls/hr IV .[id number] [facility] Last Admin: 09/29/19 14:15 Dose: Not Given Documented by: Admin: 09/29/19 01:44 Dose: 75 mls/hr Documented by: SHRUTHI Acetaminophen (Ofirmev) 1,000 mg in 100 mls @ 200 mls/hr IV Q8H [facility]; Protocol Last Admin: 09/29/19 15:56 Dose: 100 mls/hr Documented by: Infusion: 09/29/19 11:47 Dose: 0 mls/hr Documented by: Admin: 09/29/19 11:17 Dose: 200 mls/hr Documented by: Admin: 09/29/19 01:38 Dose: Not Given Documented by: SHRUTHI Latanoprost (Xalatan Ophth Drops) 1 gtt OU HS [facility] Last Admin: 09/29/19 11:19 Dose: 1 drop Documented by: JEFFREY Lisinopril (Zestril) 20 mg PO DAILY [facility] Last Admin: 09/29/19 11:18 Dose: 20 mg Documented by: JEFFREY Morphine Sulfate (Morphine) 1 - 2 mg IV Q2HP PRN; Protocol PRN Reason: Per Pain Protocol Last Admin: 09/29/19 15:56 Dose: 2 mg Documented by: JEFFREY Sodium Chloride (Saline Flush) 10 ml IV Q8 [facility] Last Admin: 09/29/19 14:15 Dose: 10 ml Documented by: Admin: 09/29/19 04:28 Dose: Not Given Documented by: Admin: 09/28/19 22:48 Dose: Not Given Documented by: SHRUTHI Sodium Chloride (Sodium Chloride) 1 gm PO TID [facility] Last Admin: 09/29/19 15:56 Dose: 1 gm Documented by: Admin: 09/29/19 11:18 Dose: 1 gm Documented by: JEFFREY Timolol Maleate (Timoptic 0.5% Ophth Drops) 1 gtt OS BID [facility] Last Admin: 09/29/19 11:19 Dose: 1 drop Documented by: Admin: 09/29/19 09:26 Dose: Not Given Documented by: JEFFREY Vancomycin HCl (Vancomycin) 1 gm TOPICAL ONCE [facility]; Protocol Last Admin: 09/28/19 23:32 Dose: 1 gm Documented by: FREDA
[2019-09-29] MEDS: SENNOSIDES 1 TABLET PO SCH (21:28)
[2019-09-29] MEDS: APIXABAN 5 MG TABLET PO SCH (21:28)
[2019-09-29] MEDS: oxyCODONE HCL 5 MG TABLET PO PRN (21:28)
[2019-09-29] MEDS: VANCOMYCIN 1 GM VIAL TOPICAL SCH (21:30)
[2019-09-30] MEDS: ACETAMINOPHEN 1,000 MG/100 ML BOTTLE IV SCH (01:19)
[2019-09-30] MEDS: LACTATED RINGERS 1,000 ML IV SCH (02:20)
[2019-09-30] MEDS: oxyCODONE HCL 5 MG TABLET PO PRN ×2 (05:18→15:48)
[2019-09-30] MEDS: 0.9 % SODIUM CHLORIDE 10 ML SYRINGE IV SCH ×3 (05:19→21:44)
--- NOTE | 2019-09-30 07:27 | Orthopedic Progress Note ---
Subjective Patient information: Note initiated : 09/30/19 at 7:24 am Service Date, if different from initiated Date: [] Patient: Janene Koroma 84 y/o F admitted on 09/28/19 for pelvic pain. Chief Complaint: [] Principal diagnosis: pelvic fracture, left olecranon fracture Interval history: No acute events overnight. Has mobilized with PT. Pain is controlled. No chest pain or shortness of breath. Objective Vital signs: Vital Signs Temp Pulse Resp BP Pulse Ox 09/30/19 03:49 98.1 F 62 14 160/75 92 09/29/19 23:54 98.5 F 77 18 143/71 92 09/29/19 20:00 97.9 F 86 16 129/72 93 09/29/19 16:00 99.1 F H 83 14 137/76 94 09/29/19 12:00 96.8 F L 85 14 138/75 95 09/29/19 08:00 96.6 F L 85 14 145/71 95 Intake and Output 09/29/19 09/30/19 09/30/19 21:59 05:59 13:59 Intake Total 1070 500 Output Total 1075 550 Balance -5 -50 Intake: IV 100 100 Oral 720 400 IV - Manual Only 250 Output: Urine Catheter Amount 625 550 Void Amount 400 Estimated Blood Loss 50 Other: Meal Dinner Percent of Meal Consumed 100% Urine Appearance Clear Uretheral (Gomez) Clear Urine Color Dark Yellow Uretheral (Gomez) Dark Yellow Urine Odor Strong Weight 126 lb 4.8 oz Intake & Output: Intake & Output 09/29/19 09/30/19 09/30/19 21:59 05:59 13:59 Intake Total 1070 500 Output Total 1075 550 Balance -5 -50 Weight 126 lb 4.8 oz Intake: IV 100 100 Oral 720 400 IV - Manual Only 250 Output: Urine Catheter Amount 625 550 Void Amount 400 Estimated Blood Loss 50 Other: Meal Dinner Percent of Meal Consumed 100% Urine Appearance Clear Uretheral (Gomez) Clear Urine Color Dark Yellow Uretheral (Gomez) Dark Yellow Urine Odor Strong Dressing: Yes splint in place Weight bearing status: non Additional Comments: left upper extremity- splint clean dry and intact. Motor function as returned to left hand with ability to abd/add make a fist and flat hand. Decreased sensation in the small and part of ring finger. Otherwise sensation is intact. Hand is warm well perfused. Extremities exam IM: Yes Foot pink and warm - Labs CBC & BMP: 09/28/19 13:23 09/29/19 06:28 Labs: 09/28/19 13:23 Hgb 10.2 L Hct 30.3 L Assessment and Plan - Narrative A/P Narrative: POD 2 s/p ORIF left olecranon fracture and closed treatment pelvic ring fracture - Non weight left upper extremity. Block has worn off with some decreased sensation in the ulnar nerve distribution. Maybe from splint- will continue to monitor -Pelvic fracture- WBAT on left lower extremity with partial 50% on right lower e xtremity -PT/OT -oral pain meds -regular diet with Na restriction for hyponatremia per Hospitalist -Andrew- tamir IS, scds, mobilization as tolerated -Dispo: SNF tomorrow
[2019-09-30] MEDS ORDERED: ACETAMINOPHEN 325 MG TABLET PO PRN (07:30)
[2019-09-30 08:34] LABS: ALT/SGPT 9 U/l (0-40); AST/SGOT 27 U/l (0-37); Albumin 3.3 gm/dL (3.2-5.2); Albumin/Globulin Ratio 1.2 (1.0-2.3); Alkaline Phosphatase 48 U/L (39-117); Bilirubin,Direct < 0.2 mg/dL (0.0-0.3); Bilirubin,Total 0.3 mg/dL (0.0-1.0); Blood Urea Nitrogen 17 mg/dl (8-23); Calcium 8.2 mg/dl (8.6-10.4); Carbon Dioxide 25 mmol/L (22-30); Globulin 2.7 gm/dL (2.2-3.7); Glomerular Filtration Rate 79; Glucose 107 mg/dL (70-105); Lactate Dehydrogenase 208 U/L (94-250); Phosphorous 2.4 mg/dL (2.7-4.5); Triglycerides 50 mg/dl (<150); Uric Acid 3.1 mg/dL (2.5-8.0)
[2019-09-30 08:37] LABS: Chloride 90 mmol/L (96-108)
[2019-09-30] MEDS: LISINOPRIL 20 MG TABLET PO SCH (09:26)
[2019-09-30] MEDS: SODIUM CHLORIDE 1 GM TABLET PO SCH ×3 (09:26→21:39)
[2019-09-30] MEDS: DOCUSATE SODIUM 100 MG CAPSULE PO SCH ×2 (09:26→21:39)
[2019-09-30] MEDS: APIXABAN 5 MG TABLET PO SCH ×2 (09:27→21:39)
[2019-09-30] MEDS: TIMOLOL 0.5% OPHTH DROPS BOTTLE 5ML OS SCH ×2 (09:28→21:38)
[2019-09-30] MEDS ORDERED: FUROSEMIDE 20 MG/2 ML VIAL IV ONE ×2 (10:09→12:00)
--- NOTE | 2019-09-30 10:10 | Internal Med Progress Note ---
Medical - PN: Subj Patient information: Note initiated : 09/30/19 at 10:02 am Service Date, if different from initiated Date: [] Patient: Janene Koroma 84 y/o F admitted on 09/28/19 for pelvic pain. Chief Complaint: [] Interval history: Ms. Koroma is a 84 year old F Patient presents to the ED after tripping on a curb falling in a parking lot landing on her left elbow left side. Left pelvic pain left arm pain. In the ED she found to have a mildly comminuted displaced fracture of the olecra non. Also found to have a nondisplaced fracture through the lateral left sacral ala and a fracture through the superior pubic ramus as well as the oblique fracture with the right inferior pubic ramus and left inferior pubic ramus. Pelvic findings were discussed with orthopedic surgeon who in consult with [place] orthopedic surgeon felt it was not surgical. Patient will be admitted to [facility] for olecranon repair. She has a history of chronic hyponatremia and anemia and MGUS. 2/ Patient had surgical repair of the left elbow yesterday. No overnight events or new complaints. Slept well. Patient sodium decreased, has had chronic low sodium in the past. Fluid restrict and salt tabs. And urine studies. 2/6 Slept better and feeling little better today. Still difficulty moving around because of the pelvic fracture. Sodium low. No overnight events. No new complaints. No dizziness or lightheadedness. Review of Systems: denies headache/fever/chills/nausea/vomiting/chest or abdominal pain/cough/dyspnea/diarrhea. Otherwise see above. - Constitutional Vitals: Vital Signs Temp Pulse Resp BP Pulse Ox 97.6 F 83 14 93/58 95 09/30/19 08:00 09/30/19 08:00 09/30/19 08:00 09/30/19 08:00 09/30/19 08:00 Period Temp Pulse Resp BP Sys/Donato Pulse Ox Last 24 Hr 96.8 F-99.1 F 62-86 14-18 93-160/58-76 92-95 Intake and Output 09/29/19 09/30/19 09/30/19 21:59 05:59 13:59 Intake Total 1070 500 Output Total 1075 550 Balance -5 -50 Weight 57.289 kg Intake & Output: Intake & Output 09/29/19 09/30/19 09/30/19 21:59 05:59 13:59 Intake Total 1070 500 Output Total 1075 550 Balance -5 -50 Weight 57.289 kg Intake: IV 100 100 Oral 720 400 IV - Manual Only 250 Output: Urine Catheter Amount 625 550 Void Amount 400 Estimated Blood Loss 50 Other: Meal Dinner Percent of Meal Consumed 100% Urine Appearance Clear Uretheral (Gomez) Clear Urine Color Dark Yellow Uretheral (Gomez) Dark Yellow Urine Odor Strong Exam: General: Alert, Awake, No acute Distress Eyes/N/T: EOMI, Head/Neck: neck supple, CV: RRR, No murmurs, Pulm: Clear b/l, no wheezing/rhonchi/rales Abd: soft, nontender, +BS x4 Ext: no clubbing/cyanosis, mild b/l LE edema, left arm in sling Neuro: Alert, no focal deficits, moves all extremities, Skin: warm/dry Medical - PN: Obj Da - Labs CBC & Chem 7: 09/28/19 13:23 09/30/19 05:50 Labs: Abnormal Lab Results 09/30/19 09/29/19 09/29/19 05:50 06:28 06:28 RBC Hgb Hct MPV Gran % Lymph % (Auto) Gran # Lymph # (Auto) Sodium 125 L 127 L Chloride 90 L 92 L Glucose 107 H 185 H Osmolality 274 L Calcium 8.2 L Phosphorus 2.4 L 09/28/19 09/28/19 13:23 13:23 RBC 3.44 L Hgb 10.2 L Hct 30.3 L MPV 11.1 H Gran % 88.3 H Lymph % (Auto) 6.7 L Gran # 9.64 H Lymph # (Auto) 0.73 L Sodium 131 L Chloride 93 L Glucose 122 H Osmolality Calcium Phosphorus Meds: Medications Acetaminophen (Tylenol) 650 mg PO Q6HP PRN; Protocol PRN Reason: Per Pain Protocol/Fever > 101 Apixaban (Eliquis) 2.5 mg PO BID [facility] Last Admin: 09/30/19 09:27 Dose: 2.5 mg Documented by: Bisacodyl (Dulcolax) 10 mg [place] Q2-3DAYS PRN PRN Reason: Constipation Docusate Sodium (Colace) 100 mg PO BID [facility] Last Admin: 09/30/19 09:26 Dose: 100 mg Documented by: Latanoprost (Xalatan Ophth Drops) 1 gtt OU HS [facility] Last Admin: 09/29/19 21:29 Dose: 1 drop Documented by: Lisinopril (Zestril) 20 mg PO DAILY [facility] Last Admin: 09/30/19 09:26 Dose: 20 mg Documented by: Magnesium Hydroxide (Milk Of Magnesia) 30 ml PO BIDP PRN PRN Reason: Constipation Methocarbamol (Robaxin) 750 mg IV Q6HP PRN PRN Reason: Muscle Spasm Morphine Sulfate (Morphine) 1 - 2 mg IV Q2HP PRN; Protocol PRN Reason: Per Pain Protocol Last Admin: 09/29/19 15:56 Dose: 2 mg Documented by: Ondansetron HCl (Zofran) 4 mg IV Q4HP PRN; Protocol PRN Reason: Nausea And Vomiting Oxycodone HCl (Roxicodone) 0 mg PO Q4HP PRN; Protocol PRN Reason: Per Pain Protocol Last Admin: 09/30/19 05:18 Dose: 5 mg Documented by: Polyethylene Glycol (Miralax) 17 gm PO DAILYP PRN PRN Reason: Constipation Senna (Senokot) 2 tab PO HS [facility] Last Admin: 09/29/19 21:28 Dose: 2 tab Documented by: Sodium Biphosphate/Sodium Phosphate (Fleets Adult) 1 dose [place] Q3-4DAYS PRN PRN Reason: Constipation Sodium Chloride (Saline Flush) 10 ml IV Q8 [facility] Last Admin: 09/30/19 05:19 Dose: 10 ml Documented by: Sodium Chloride (Sodium Chloride) 1 gm PO TID [facility] Last Admin: 09/30/19 09:26 Dose: 1 gm Documented by: Throat Lozenges (Cepacol) 1 lozenge PO PRN PRN PRN Reason: Sore Throat Timolol Maleate (Timoptic 0.5% Ophth Drops) 1 gtt OS BID [facility] Last Admin: 09/30/19 09:28 Dose: 1 drop Documented by: Medical - PN: A/P - Time Spent With Patient Total time spent is greater than 50% in coordination of care (as documented) at patient's floor/unit and/or counseling patient: - Narrative A/P Narrative: A: *Left olecranon fracture: *Pelvic Fx: nonoperable *MGUS: *Anemia, chronic: *hypoNatremia, chronic: was on salt tabs for a while after 2018 hospitalization for CAP -lower this morning, *HTN: *Osteoporosis: *h/o breast/colon CA: P: -Dr. padilla for ortho -pain control -cont home ACEI -urine studies, then likely salt tabs, fluid restrict -lasix today, f/u sodium in AM -pt/ot -CM for placement -ppx: scd(post-op per ortho) Medical - PN: Qual - VTE Deep Vein Thrombosis/Pulmonary Embolism Present on Admission: No
[2019-09-30] MEDS: LATANOPROST OPHTH DROPS 2.5ML BOTTLE OU SCH (21:38)
[2019-09-30] MEDS: SENNOSIDES 1 TABLET PO SCH (21:40)
[2019-10-01] MEDS: 0.9 % SODIUM CHLORIDE 10 ML SYRINGE IV SCH (05:41)
--- NOTE | 2019-10-01 07:27 | Internal Med Progress Note ---
Medical - PN: Subj Patient information: Note initiated : 10/01/19 at 7:25 am Service Date, if different from initiated Date: [] Patient: Janene Koroma 84 y/o F admitted on 09/28/19 for pelvic pain. Chief Complaint: [] Interval history: Ms. Koroma is a 84 year old F Patient presents to the ED after tripping on a curb falling in a parking lot landing on her left elbow left side. Left pelvic pain left arm pain. In the ED she found to have a mildly comminuted displaced fracture of the olecranon. Also found to have a nondisplaced fracture through the lateral left sacral ala and a fracture through the superior pubic ramus as well as the oblique fracture with the right inferior pubic ramus and left inferior pubic ramus. Pelvic findings were discussed with orthopedic surgeon who in consult with [place] orthopedic surgeon felt it was not surgical. Patient will be admitted to [facility] for olecranon repair. She has a history of chronic hyponatremia and anemia and MGUS. 2/ Patient had surgical repair of the left elbow yesterday. No overnight events or new complaints. Slept well. Patient sodium decreased, has had chronic low sodium in the past. Fluid restrict and salt tabs. And urine studies. 2/6 Slept better and feeling little better today. Still difficulty moving around because of the pelvic fracture. Sodium low. No overnight events. No new complaints. No dizziness or lightheadedness. 2/ Doing well. Looking forward to discharging. No new complaints overnight events. Sodium improved. Review of Systems: denies headache/fever/chills/nausea/vomiting/chest or abdominal pain/cough/dyspnea/diarrhea. Otherwise see above. - Constitutional Vitals: Vital Signs Temp Pulse Resp BP Pulse Ox 98.7 F 84 18 177/90 93 10/01/19 07:05 10/01/19 07:05 10/01/19 07:05 10/01/19 07:05 10/01/19 07:05 Period Temp Pulse Resp BP Sys/Donato Pulse Ox Last 24 Hr 97.6 F-98.7 F 62-89 14-18 93-185/56-90 90-95 Intake and Output 09/30/19 10/01/19 10/01/19 21:59 05:59 13:59 Intake Total 1880 200 Output Total 1500 1075 Balance 380 -875 Weight 59.647 kg Intake & Output: Intake & Output 09/30/19 10/01/19 10/01/19 21:59 05:59 13:59 Intake Total 1880 200 Output Total 1500 1075 Balance 380 -875 Weight 59.647 kg Intake: Oral 0 200 Output: Urine Catheter Amount 1500 1075 Other: Meal Lunch Percent of Meal Consumed 25% Feeding Ability Assist with Tray Set Up Urine Appearance Clear Uretheral (Gomez) Clear Urine Color Bright Yellow Uretheral (Gomez) Bright Yellow Exam: General: Alert, Awake, No acute Distress Eyes/N/T: EOMI, Head/Neck: neck supple, CV: RRR, No murmurs, Pulm: Clear b/l, no wheezing/rhonchi/rales Abd: soft, nontender, +BS x4 Ext: no clubbing/cyanosis, mild b/l LE edema, left arm in sling Neuro: Alert, no focal deficits, moves all extremities, Skin: warm/dry Medical - PN: Obj Da - Labs CBC & Chem 7: 09/28/19 13:23 10/01/19 05:20 Labs: Abnormal Lab Results 09/30/19 09/29/19 09/29/19 05:50 06:28 06:28 RBC Hgb Hct MPV Gran % Lymph % (Auto) Gran # Lymph # (Auto) Sodium 125 L 127 L Chloride 90 L 92 L Glucose 107 H 185 H Osmolality 274 L Calcium 8.2 L Phosphorus 2.4 L 09/28/19 09/28/19 13:23 13:23 RBC 3.44 L Hgb 10.2 L Hct 30.3 L MPV 11.1 H Gran % 88.3 H Lymph % (Auto) 6.7 L Gran # 9.64 H Lymph # (Auto) 0.73 L Sodium 131 L Chloride 93 L Glucose 122 H Osmolality Calcium Phosphorus Meds: Medications Acetaminophen (Tylenol) 650 mg PO Q6HP PRN; Protocol PRN Reason: Per Pain Protocol/Fever > 101 Apixaban (Eliquis) 2.5 mg PO BID [facility] Last Admin: 09/30/19 21:39 Dose: 2.5 mg Documented by: Bisacodyl (Dulcolax) 10 mg [place] Q2-3DAYS PRN PRN Reason: Constipation Docusate Sodium (Colace) [address] [facility] Last Admin: 09/30/19 21:39 Dose: 100 mg Documented by: Latanoprost (Xalatan Ophth Drops) [address] [facility] Last Admin: 09/30/19 21:38 Dose: 1 drop Documented by: Lisinopril (Zestril) [address] [facility] Last Admin: 09/30/19 09:26 Dose: 20 mg Documented by: Magnesium Hydroxide (Milk Of Magnesia) 30 ml PO BIDP PRN PRN Reason: Constipation Methocarbamol (Robaxin) 750 mg IV Q6HP PRN PRN Reason: Muscle Spasm Morphine Sulfate (Morphine) 1 - 2 mg IV Q2HP PRN; Protocol PRN Reason: Per Pain Protocol Last Admin: 09/29/19 15:56 Dose: 2 mg Documented by: Ondansetron HCl (Zofran) 4 mg IV Q4HP PRN; Protocol PRN Reason: Nausea And Vomiting Oxycodone HCl (Roxicodone) 0 mg PO Q4HP PRN; Protocol PRN Reason: Per Pain Protocol Last Admin: 09/30/19 15:48 Dose: 5 mg Documented by: Polyethylene Glycol (Miralax) 17 gm PO DAILYP PRN PRN Reason: Constipation Senna (Senokot) 2 tab PO [facility] Last Admin: 09/30/19 21:40 Dose: 2 tab Documented by: Sodium Biphosphate/Sodium Phosphate (Fleets Adult) 1 dose [place] Q3-4DAYS PRN PRN Reason: Constipation Sodium Chloride (Saline Flush) [address] [facility] Last Admin: 10/01/19 05:41 Dose: 10 ml Documented by: Sodium Chloride (Sodium Chloride) [address] [facility] Last Admin: 09/30/19 21:39 Dose: 1 gm Documented by: Throat Lozenges (Cepacol) 1 lozenge PO PRN PRN PRN Reason: Sore Throat Timolol Maleate (Timoptic 0.5% Ophth Drops) [address] [facility] Last Admin: 09/30/19 21:38 Dose: 1 drop Documented by: Medical - PN: A/P - Time Spent With Patient Total time spent is greater than 50% in coordination of care (as documented) at patient's floor/unit and/or counseling patient: - Narrative A/P Narrative: A: *Left olecranon fracture: *Pelvic Fx: nonoperable *MGUS: *Anemia, chronic: *hypoNatremia, chronic: was on salt tabs for a while after 2018 hospitalization for CAP -lower this morning, *HTN: *Osteoporosis: *h/o breast/colon CA: P: -Dr. padilla for ortho -pain control -cont home ACEI -salt tabs, fluid restrict -pt/ot -CM for placement -ppx: apixaban Medical - PN: Qual - VTE Deep Vein Thrombosis/Pulmonary Embolism Present on Admission: No
[2019-10-01 07:35] LABS: ALT/SGPT 10 U/l (0-40); AST/SGOT 27 U/l (0-37); Albumin 3.3 gm/dL (3.2-5.2); Albumin/Globulin Ratio 1.2 (1.0-2.3); Alkaline Phosphatase 60 U/L (39-117); Bilirubin,Direct < 0.2 mg/dL (0.0-0.3); Bilirubin,Total 0.4 mg/dL (0.0-1.0); Blood Urea Nitrogen 10 mg/dl (8-23); Calcium 8.4 mg/dl (8.6-10.4); Carbon Dioxide 26 mmol/L (22-30); Globulin 2.7 gm/dL (2.2-3.7); Glomerular Filtration Rate 79; Glucose 109 mg/dL (70-105); Lactate Dehydrogenase 226 U/L (94-250); Phosphorous 2.6 mg/dL (2.7-4.5); Triglycerides 63 mg/dl (<150)
[2019-10-01 07:38] LABS: Chloride 92 mmol/L (96-108); Uric Acid 2.4 mg/dL (2.5-8.0)
[2019-10-01] MEDS: LISINOPRIL 20 MG TABLET PO SCH (08:23)
[2019-10-01] MEDS: APIXABAN 5 MG TABLET PO SCH (08:23)
[2019-10-01] MEDS: DOCUSATE SODIUM 100 MG CAPSULE PO SCH (08:23)
[2019-10-01] MEDS: SODIUM CHLORIDE 1 GM TABLET PO SCH (08:23)
[2019-10-01] MEDS: TIMOLOL 0.5% OPHTH DROPS BOTTLE 5ML OS SCH ×2 (08:24→10:19)
[2019-10-01] MEDS: oxyCODONE HCL 5 MG TABLET PO PRN (10:44)
== END 2019-10-01 11:43 | DRG 511 ==
LOC: ED 11:51 → MEDSUR 19:49
PROVIDERS: ADMIT Orthopaedic Surgery; ATTEND Orthopaedic Surgery